=== PATIENT | female | born 1945 | race Caucasian/White ===

== ENCOUNTER 2020-03-26 14:32 | Outpatient (CLI) | payer MEDICARE, SELFPAY ==
[2020-03-26 14:46] LABS: Basophils Absolute Auto 0.03 K/mm3 (0.00-0.10); Basophils Percent Auto 0.5 % (0.0-1.0); Eosinophils Percent Auto 3.5 % (1.0-6.0); Hematocrit 34.5 % (35.0-42.0); Hemoglobin 11.4 g/dL (11.7-13.8); Immature Granulocyte Absolute 0.01 K/mm3 (0.00-0.00); Immature Granulocyte Percent A 0.2 % (0.0-0.0); Lymphocytes Absolute Auto 1.83 K/mm3 (1.10-4.50); Lymphocytes Percent Auto 32.4 % (18.0-42.0); Mean Corpuscular Hemoglobin 30.7 pg (27.0-31.0); Mean Platelet Volume 10.3 fl (9.2-11.8); Monocytes Absolute Auto 0.55 K/mm3 (0.10-0.90); Monocytes Percent Auto 9.8 % (2.0-11.0); Neutrophils Percent Auto 53.6 % (50.0-70.0); Platelet Count Result 218 K/mm3 (150-420); Red Blood Count 3.71 M/mm3 (4.20-5.40); Red Cell Distribution Width 12.4 % (11.6-14.4); White Blood Count 5.6 K/mm3 (4.8-10.8)
[2020-03-26 15:42] LABS: Alanine Aminotransferase 17 U/L (14-59); Albumin Level 3.7 g/dL (3.4-5.0); Alkaline Phosphatase 66 U/L (46-116); Anion Gap 11.1 mmol/L (7-16); Aspartate Amino Transferase 18 U/L (15-37); Bilirubin,Total 0.3 mg/dL (0.00-1.00); Blood Urea Nitrogen 13 mg/dL (7-18); Calcium 8.6 mg/dL (8.5-10.1); Carbon Dioxide 33 mmol/L (21-32); Chloride 99 mmol/L (98-108); Estimated Glomerular Filt Rate 53; Glucose 82 mg/dL (70-99); Magnesium 1.9 mg/dL (1.8-2.4); Osmolality Calculated 287 mOsm/kg (285-295); Potassium 4.1 mmol/L (3.5-5.1); Sodium 139 mmol/L (136-145); Total Protein 6.4 g/dL (6.4-8.2)
== END 2020-03-26 14:33 | disposition home or self-care (01) ==
PROVIDERS: PCP Internal Medicine; Visit Provider Internal Medicine
DX: I10 Essential (primary) hypertension (principal)
CPT/HCPCS: 36415; 80053; 83735; 85025

== ENCOUNTER 2020-09-23 09:14 | Outpatient (CLI) | payer MEDICARE, SELFPAY ==
[2020-09-23 09:37] LABS: Basophils Absolute Auto 0.03 K/mm3 (0.00-0.10); Basophils Percent Auto 0.7 % (0.0-1.0); Eosinophils Absolute Auto 0.18 K/mm3 (0.02-0.50); Hematocrit 36.1 % (35.0-42.0); Hemoglobin 11.7 g/dL (11.7-13.8); Immature Granulocyte Absolute 0.01 K/mm3 (0.00-0.00); Immature Granulocyte Percent A 0.2 % (0.0-0.0); Lymphocytes Absolute Auto 1.44 K/mm3 (1.10-4.50); Lymphocytes Percent Auto 32.1 % (18.0-42.0); Mean Corpuscular HGB Conc 32.4 g/dL (32.0-36.0); Mean Corpuscular Hemoglobin 30.2 pg (27.0-31.0); Mean Platelet Volume 10.1 fl (9.2-11.8); Monocytes Absolute Auto 0.47 K/mm3 (0.10-0.90); Monocytes Percent Auto 10.5 % (2.0-11.0); Neutrophils Absolute Auto 2.4 K/mm3 (1.7-7.2); Neutrophils Percent Auto 52.5 % (50.0-70.0); Platelet Count Result 235 K/mm3 (150-420); Red Blood Count 3.88 M/mm3 (4.20-5.40); Red Cell Distribution Width 12.4 % (11.6-14.4); White Blood Count 4.5 K/mm3 (4.8-10.8)
[2020-09-23 10:50] LABS: Alanine Aminotransferase 20 U/L (14-59); Albumin Level 3.8 g/dL (3.4-5.0); Alkaline Phosphatase 62 U/L (46-116); Anion Gap 9 mmol/L (8-16); Aspartate Amino Transferase 15 U/L (15-37); Bilirubin,Total 0.6 mg/dL (0.00-1.00); Blood Urea Nitrogen 17 mg/dL (7-18); Calcium 8.9 mg/dL (8.5-10.1); Carbon Dioxide 30 mmol/L (21-32); Chloride 101 mmol/L (98-108); Estimated Glomerular Filt Rate 49; Glucose 94 mg/dL (70-99); Osmolality Calculated 291 mOsm/kg (285-295); Potassium 4.1 mmol/L (3.5-5.1); Sodium 140 mmol/L (136-145); Total Protein 6.4 g/dL (6.4-8.2)
== END 2020-09-23 09:15 | disposition home or self-care (01) ==
LOC: CHSLAB 09:16
PROVIDERS: PCP Internal Medicine; Visit Provider Internal Medicine
DX: I10 Essential (primary) hypertension (principal)
CPT/HCPCS: 36415; 80053; 85025

== ENCOUNTER 2021-02-25 09:46 | Outpatient (CLI) | payer MEDICARE, SELFPAY ==
[2021-02-25 09:55] LABS: Basophils Absolute Auto 0.04 K/mm3 (0.00-0.10); Basophils Percent Auto 0.9 % (0.0-1.0); Eosinophils Absolute Auto 0.14 K/mm3 (0.02-0.50); Hematocrit 35.8 % (35.0-42.0); Hemoglobin 11.9 g/dL (11.7-13.8); Immature Granulocyte Absolute 0.01 K/mm3 (0.00-0.00); Immature Granulocyte Percent A 0.2 % (0.0-0.0); Lymphocytes Absolute Auto 1.44 K/mm3 (1.10-4.50); Lymphocytes Percent Auto 30.8 % (18.0-42.0); Mean Corpuscular HGB Conc 33.2 g/dL (32.0-36.0); Mean Corpuscular Volume 93.2 fL (78.0-102.0); Mean Platelet Volume 10.2 fl (9.2-11.8); Monocytes Absolute Auto 0.46 K/mm3 (0.10-0.90); Monocytes Percent Auto 9.8 % (2.0-11.0); Neutrophils Absolute Auto 2.6 K/mm3 (1.7-7.2); Neutrophils Percent Auto 55.3 % (50.0-70.0); Platelet Count Result 240 K/mm3 (150-420); Red Blood Count 3.84 M/mm3 (4.20-5.40); Red Cell Distribution Width 12.6 % (11.6-14.4); White Blood Count 4.7 K/mm3 (4.8-10.8)
[2021-02-25 10:47] LABS: Alanine Aminotransferase 21 U/L (14-59); Albumin Level 3.8 g/dL (3.4-5.0); Alkaline Phosphatase 88 U/L (46-116); Anion Gap 7 mmol/L (8-16); Aspartate Amino Transferase 17 U/L (15-37); Bilirubin,Total 0.6 mg/dL (0.00-1.00); Blood Urea Nitrogen 19 mg/dL (7-18); Calcium 9.1 mg/dL (8.5-10.1); Carbon Dioxide 32 mmol/L (21-32); Chloride 100 mmol/L (98-108); Estimated Glomerular Filt Rate 48; Glucose 96 mg/dL (70-99); Osmolality Calculated 290 mOsm/kg (285-295); Potassium 4.1 mmol/L (3.5-5.1); Sodium 139 mmol/L (136-145); Total Protein 6.6 g/dL (6.4-8.2)
== END 2021-02-25 09:47 | disposition home or self-care (01) ==
LOC: CHSLAB 09:47
PROVIDERS: PCP Internal Medicine; Visit Provider Internal Medicine
DX: I10 Essential (primary) hypertension (principal)
CPT/HCPCS: 36415; 80053; 83735; 85025

== ENCOUNTER 2021-08-07 07:54 | Outpatient (CLI) | payer MEDICARE, SELFPAY ==
[2021-08-07 08:07] LABS: Basophils Absolute Auto 0.04 K/mm3 (0.00-0.10); Hematocrit 34.7 % (35.0-42.0); Hemoglobin 11.3 g/dL (11.7-13.8); Immature Granulocyte Absolute 0.02 K/mm3 (0.00-0.00); Immature Granulocyte Percent A 0.5 % (0.0-0.0); Lymphocytes Absolute Auto 1.01 K/mm3 (1.10-4.50); Lymphocytes Percent Auto 25.3 % (18.0-42.0); Mean Corpuscular HGB Conc 32.6 g/dL (32.0-36.0); Mean Corpuscular Hemoglobin 30.7 pg (27.0-31.0); Mean Corpuscular Volume 94.3 fL (78.0-102.0); Mean Platelet Volume 9.9 fl (9.2-11.8); Neutrophils Absolute Auto 2.3 K/mm3 (1.7-7.2); Neutrophils Percent Auto 58.2 % (50.0-70.0); Platelet Count Result 200 K/mm3 (150-420); Red Blood Count 3.68 M/mm3 (4.20-5.40); Red Cell Distribution Width 12.9 % (11.6-14.4)
[2021-08-07 09:20] LABS: Alanine Aminotransferase 24 U/L (14-59); Albumin Level 3.6 g/dL (3.4-5.0); Alkaline Phosphatase 62 U/L (46-116); Anion Gap 6 mmol/L (8-16); Aspartate Amino Transferase 14 U/L (15-37); Bilirubin,Total 0.5 mg/dL (0.00-1.00); Blood Urea Nitrogen 14 mg/dL (7-18); Calcium 8.6 mg/dL (8.5-10.1); Carbon Dioxide 32 mmol/L (21-32); Chloride 104 mmol/L (98-108); Estimated Glomerular Filt Rate 54; Glucose 87 mg/dL (70-99); Osmolality Calculated 293 mOsm/kg (285-295); Potassium 4.2 mmol/L (3.5-5.1); Sodium 142 mmol/L (136-145)
== END 2021-08-07 07:55 | disposition home or self-care (01) ==
PROVIDERS: PCP Internal Medicine; Visit Provider Internal Medicine
DX: I10 Essential (primary) hypertension (principal)
CPT/HCPCS: 36415; 80053; 83735; 85025

== ENCOUNTER 2022-02-09 09:53 | Outpatient (CLI) | payer MEDICARE, SELFPAY ==
[2022-02-09 10:07] LABS: Basophils Absolute Auto 0.04 K/mm3 (0.00-0.10); Eosinophils Absolute Auto 0.27 K/mm3 (0.02-0.50); Eosinophils Percent Auto 6.7 % (1.0-6.0); Hematocrit 36.6 % (35.0-42.0); Immature Granulocyte Absolute 0.01 K/mm3 (0.00-0.00); Immature Granulocyte Percent A 0.2 % (0.0-0.0); Lymphocytes Absolute Auto 1.26 K/mm3 (1.10-4.50); Lymphocytes Percent Auto 31.4 % (18.0-42.0); Mean Corpuscular HGB Conc 32.8 g/dL (32.0-36.0); Mean Corpuscular Hemoglobin 31.2 pg (27.0-31.0); Mean Corpuscular Volume 95.1 fL (78.0-102.0); Mean Platelet Volume 10.2 fl (9.2-11.8); Monocytes Absolute Auto 0.38 K/mm3 (0.10-0.90); Monocytes Percent Auto 9.5 % (2.0-11.0); Neutrophils Absolute Auto 2.1 K/mm3 (1.7-7.2); Neutrophils Percent Auto 51.2 % (50.0-70.0); Platelet Count Result 216 K/mm3 (150-420); Red Blood Count 3.85 M/mm3 (4.20-5.40); Red Cell Distribution Width 12.5 % (11.6-14.4)
[2022-02-09 10:43] LABS: Alanine Aminotransferase 41 U/L (14-59); Albumin Level 3.6 g/dL (3.4-5.0); Alkaline Phosphatase 75 U/L (46-116); Anion Gap 8 mmol/L (8-16); Aspartate Amino Transferase 18 U/L (15-37); Bilirubin,Total 0.5 mg/dL (0.00-1.00); Blood Urea Nitrogen 19 mg/dL (7-18); Calcium 8.6 mg/dL (8.5-10.1); Carbon Dioxide 30 mmol/L (21-32); Chloride 101 mmol/L (98-108); Estimated Glomerular Filt Rate 54; Glucose 95 mg/dL (70-99); Magnesium 1.7 mg/dL (1.8-2.4); Osmolality Calculated 290 mOsm/kg (285-295); Potassium 3.9 mmol/L (3.5-5.1); Sodium 139 mmol/L (136-145); Total Protein 6.2 g/dL (6.4-8.2)
== END 2022-02-09 09:54 | disposition home or self-care (01) ==
LOC: CHSLAB 09:55
PROVIDERS: PCP Internal Medicine; Visit Provider Internal Medicine
DX: D72.819 Decreased white blood cell count, unspecified (principal); I10 Essential (primary) hypertension
CPT/HCPCS: 36415; 80053; 83735; 85025

== ENCOUNTER 2022-02-23 09:27 | Outpatient (CLI) | payer MEDICARE, SELFPAY ==
--- NOTE | ~2022-02-23 | XR_ITS ---
EXAM: XR knee LT 3V HISTORY: medial left knee pain x6-9mo COMPARISON: 09/19/2015. FINDINGS: Osteopenia. Moderate medial and mild lateral joint space narrowing. Tricompartmental osteo phytosis, moderate in the patellofemoral compartment. No fracture or dislocation. Moderate volume art nt fluid is present. IMPRESSION: Tricompartmental left knee osteoarthritis, moderate in the medial and patellofemoral compartments. Mo derate volume left knee joint effusion. Reviewed, dictated and finalized at location K. IMPRESSION: Tricompartmental left knee osteoarthritis, moderate in the medial and patellofe moral compartments. Moderate volume left knee joint effusion.
== END 2022-02-23 09:28 | disposition home or self-care (01) ==
LOC: CHSIMG 09:29
PROVIDERS: PCP Internal Medicine; Visit Provider Internal Medicine
DX: M25.562 Pain in left knee (principal); M17.12 Unilateral primary osteoarthritis, left knee
CPT/HCPCS: 73562

== ENCOUNTER 2022-03-02 07:54 | Outpatient (RCR) | payer MEDICARE, SELFPAY ==
--- NOTE | 2022-03-02 08:58 | PTOPEVAL ---
Thank you for referring Terrence Alexander to [facility].? The patient is scheduled to be seen for therapy? ____x/week for ___ weeks. Please review, sign, date and return this plan of care YUDITH. I agree with and certify that the following plan of care is medically necessary. Referring Physician Date Admitting Provider: Attending Provider: Jarett Shea MD Referring Provider: *PT Outpatient Evaluation Start: 03/02/22 08:02 Freq: Status: Active Protocol: Document 03/02/22 08:05 [facility] (Rec: 03/02/22 08:58 [facility] [id number]) Therapy Assessment Status Assessment Status Assessment Status Evaluation Outpatient Past Medical History Cardiovascular History Hx Hypertension Yes Gastrointestinal History Hx Other Gastrointestinal Disorders Yes: constipation Evaluation Information Problem Diagnosis L knee pain, R knee pain Onset 02/24/22 Additional Evaluation Detail LEFS = 70% functionally declined Subjective Information patient reports she has been Query Text:As Reported By Patient/ having pain in the L knee for Family at least 6 months or more. she reports the L knee has been stiff, hurting, and giving out on her. she reports she has had xrays. she reports she was laying down while taking all xrays. she reports xrays show tricompartmental arthritis. she reports she does have pain in the R knee as well. she reports she has difficulty getting up and walking after sitting and resting for any amount of time. she reports she is not able to stay in bed more than 4 hours due to pain in the knees. Pain Assessment Timing of Pain Assessment Timing of Pain Assessment Assessment Pain Scale Pain Scale Used Numeric (1 - 10) Self Report Pain Assessment Right Knee(s) Reported Pain Level 0 Greatest Pain Intensity 3 Left Knee(s) Reported Pain Level 0 Greatest Pain Intensity 8 Pain Score Pain Score 0,0: Self Report Interventions Used Interventions Used By Clinicians Heat,Rest Lower Extremity Range of Motion General Lower Extremity Range of Motion Gross Lower Extremity Range of Motion -5 degrees arom R knee Comments extension 121 degrees arom R knee flex -5
--- NOTE | 2022-03-19 09:14 | PTOPEVAL ---
Thank you for referring Terrence Alexander to [facility].? The patient is scheduled to be seen for therapy? ____x/week for ___ weeks. Please review, sign, date and return this plan of care YUDITH. I agree with and certify that the following plan of care is medically necessary. Referring Physician Date Admitting Provider: Attending Provider: Jarett Shea MD Referring Provider: *PT Outpatient Evaluation Start: 03/02/22 08:02 Freq: Status: Active Protocol: Document 03/19/22 08:00 [facility] (Rec: 03/19/22 09:13 [facility] [id number]) Therapy Assessment Status Assessment Status Assessment Status Progress Outpatient Past Medical History Cardiovascular History Hx Hypertension Yes Gastrointestinal History Hx Other Gastrointestinal Disorders Yes: constipation Evaluation Information Problem Diagnosis L knee pain, R knee pain Onset 02/24/22 Pain Assessment Timing of Pain Assessment Timing of Pain Assessment Assessment Pain Scale Pain Scale Used Numeric (1 - 10) Self Report Pain Assessment Right Knee(s) Reported Pain Level 1 Greatest Pain Intensity 4 Left Knee(s) Reported Pain Level 6 Greatest Pain Intensity 8 Pain Score Pain Score 1,6: Self Report Interventions Used Interventions Used By Clinicians Activity or ADL's,Education, Electrical Stimulation, Exercise,Heat,Rest Lower Extremity Muscle Strength Testing Knee Strength Right Knee Flexion Strength 5 Normal Knee Extension Strength 4 Good Knee Strength Comments pain with R knee extension mm testing Left Knee Flexion Strength 5 Normal Knee Extension Strength 4+ Good + Gait Assessment Gait Pattern Assessment Other Gait Observations patient ambulates with bilateral trunk sway still this date, but displays improved bilateral knee flexion during gait cycle. 6 Minute Walk Total Distance (feet) 1,050 6 Minute Walk Gait Speed Score (feet/ 2.91 second) General Exercise General Exercises Exercise Description Ther ex Query Text:Record Sets, Reps, -heel and toe raises x30 each Resistance, and Position -hip abd x 30 bilat -hip ext x 30 bilat -mini squats x 20 paige -slant board stretch x3 minutes -progress measures Ther act -step ups 8 x 20 paige
--- NOTE | 2022-03-26 08:37 | PTOPEVAL ---
Thank you for referring Terrence Alexander to [facility].? The patient is scheduled to be seen for therapy? ____x/week for ___ weeks. Please review, sign, date and return this plan of care YUDITH. I agree with and certify that the following plan of care is medically necessary. Referring Physician Date Admitting Provider: Attending Provider: Jarett Shea MD Referring Provider: *PT Outpatient Evaluation Start: 03/02/22 08:02 Freq: Status: Active Protocol: Document 03/26/22 07:28 [facility] (Rec: 03/26/22 08:36 [facility] [id number]) Therapy Assessment Status Assessment Status Assessment Status Evaluation Outpatient Past Medical History Cardiovascular History Hx Hypertension Yes Gastrointestinal History Hx Other Gastrointestinal Disorders Yes: constipation Evaluation Information Problem Diagnosis L knee pain, R knee pain Onset 02/24/22 Subjective Information patient reports she continues Query Text:As Reported By Patient/ to have pain in the L knee. Family she reports she has had an xray but does not remember the arthritis. she reports she is leaving for a trip in a little over a week and will be doing a lot of standing and walking. Pain Assessment Timing of Pain Assessment Timing of Pain Assessment Assessment Pain Scale Pain Scale Used Numeric (1 - 10) Self Report Pain Assessment Right Knee(s) Reported Pain Level 0 Left Knee(s) Reported Pain Level 3 Pain Score Pain Score 0,3: Self Report Interventions Used Interventions Used By Clinicians Activity or ADL's,Education, Electrical Stimulation, Exercise,Heat,Rest Lower Extremity Range of Motion General Lower Extremity Range of Motion Gross Lower Extremity Range of Motion -5 degrees arom L knee Comments extension 110 degrees arom L knee flexion Lower Extremity Muscle Strength Testing Knee Strength Right Knee Flexion Strength 5 Normal Knee Extension Strength 4+ Good + Left Knee Flexion Strength 4+ Good + Knee Extension Strength 4+ Good + Knee Strength Comments cramping in the L thigh with mmt and pain with holding against mmt pressure when testing extension Muscle Length Testing Muscle Length Testing Left Hamstring Length 20 Query Text:(90 - 90 Position) Right Hamstring Length 15 Query Text:(90 - 90 Position)
== END 2022-03-26 10:04 | disposition home or self-care (01) ==
LOC: CHSPT 07:54
PROVIDERS: PCP Internal Medicine; Visit Provider Internal Medicine
DX: M25.562 Pain in left knee (principal)
CPT/HCPCS: 97014; 97110; 97161; 97530; G0283

== ENCOUNTER 2022-08-04 12:34 | Outpatient (CLI) | payer MEDICARE, SELFPAY ==
[2022-08-04 12:50] LABS: Basophils Absolute Auto 0.04 K/mm3 (0.00-0.10); Basophils Percent Auto 0.9 % (0.0-1.0); Eosinophils Absolute Auto 0.19 K/mm3 (0.02-0.50); Eosinophils Percent Auto 4.2 % (1.0-6.0); Hematocrit 34.3 % (35.0-42.0); Hemoglobin 11.4 g/dL (11.7-13.8); Immature Granulocyte Absolute 0.01 K/mm3 (0.00-0.00); Immature Granulocyte Percent A 0.2 % (0.0-0.0); Lymphocytes Absolute Auto 1.31 K/mm3 (1.10-4.50); Lymphocytes Percent Auto 28.9 % (18.0-42.0); Mean Corpuscular HGB Conc 33.2 g/dL (32.0-36.0); Mean Corpuscular Hemoglobin 31.3 pg (27.0-31.0); Mean Corpuscular Volume 94.2 fL (78.0-102.0); Mean Platelet Volume 10.2 fl (9.2-11.8); Neutrophils Absolute Auto 2.5 K/mm3 (1.7-7.2); Neutrophils Percent Auto 54.8 % (50.0-70.0); Platelet Count Result 214 K/mm3 (150-420); Red Blood Count 3.64 M/mm3 (4.20-5.40); Red Cell Distribution Width 12.6 % (11.6-14.4); White Blood Count 4.5 K/mm3 (4.8-10.8)
[2022-08-04 13:04] LABS: Anion Gap 5 mmol/L (8-16); Aspartate Amino Transferase 17 U/L (15-37); Blood Urea Nitrogen 21 mg/dL (7-18); Calcium 8.9 mg/dL (8.5-10.1); Carbon Dioxide 31 mmol/L (21-32); Chloride 99 mmol/L (98-108); Estimated Glomerular Filt Rate 41; Glucose 101 mg/dL (70-99); Osmolality Calculated 283 mOsm/kg (285-295); Potassium 4.2 mmol/L (3.5-5.1); Sodium 135 mmol/L (136-145)
== END 2022-08-04 12:35 | disposition home or self-care (01) ==
PROVIDERS: PCP Internal Medicine; Visit Provider Physician Assistant Surgical
DX: M25.562 Pain in left knee (principal); Z79.1 Long term (current) use of non-steroidal anti-inflammatories (NSAID); M17.12 Unilateral primary osteoarthritis, left knee
CPT/HCPCS: 36415; 80048; 84450; 85025

== ENCOUNTER 2022-08-18 07:42 | Outpatient (CLI) | payer MEDICARE, SELFPAY ==
[2022-08-18 08:04] LABS: Basophils Absolute Auto 0.06 K/mm3 (0.00-0.10); Basophils Percent Auto 1.3 % (0.0-1.0); Eosinophils Absolute Auto 0.24 K/mm3 (0.02-0.50); Eosinophils Percent Auto 5.2 % (1.0-6.0); Hemoglobin 11.8 g/dL (11.7-13.8); Immature Granulocyte Absolute 0.01 K/mm3 (0.00-0.00); Immature Granulocyte Percent A 0.2 % (0.0-0.0); Lymphocytes Absolute Auto 1.53 K/mm3 (1.10-4.50); Mean Corpuscular HGB Conc 32.8 g/dL (32.0-36.0); Mean Corpuscular Hemoglobin 30.7 pg (27.0-31.0); Mean Corpuscular Volume 93.8 fL (78.0-102.0); Mean Platelet Volume 9.8 fl (9.2-11.8); Monocytes Absolute Auto 0.49 K/mm3 (0.10-0.90); Monocytes Percent Auto 10.6 % (2.0-11.0); Neutrophils Absolute Auto 2.3 K/mm3 (1.7-7.2); Neutrophils Percent Auto 49.7 % (50.0-70.0); Platelet Count Result 234 K/mm3 (150-420); Red Blood Count 3.84 M/mm3 (4.20-5.40); Red Cell Distribution Width 12.4 % (11.6-14.4); White Blood Count 4.6 K/mm3 (4.8-10.8)
[2022-08-18 08:06] LABS: Appearance Urine Clear (Clear); Bilirubin Urine Negative (Negative); Blood Urine Negative (Negative); Glucose Urine UA Negative (Negative); Ketones Urine Negative (Negative); Leukocyte Esterase Ur 1+ (Negative); Nitrate Urine Negative (Negative); Protein Urine Negative (Negative); Urobilinogen Urine 0.2 mg/dL (0.2-1.0)
[2022-08-18 08:11] LABS: Add Urine Microscopic? YES; Bacteria Urine Trace /hpf; Color Urine Light Yellow (Yellow); RBC Urine None seen /hpf (0-2); Squamous Epithelial Cell Urine Moderate /hpf (Few); WBC Urine 0-3 /hpf (0-3)
[2022-08-18 08:45] LABS: Alanine Aminotransferase 17 U/L (14-59); Albumin Level 3.7 g/dL (3.4-5.0); Alkaline Phosphatase 64 U/L (46-116); Anion Gap 5 mmol/L (8-16); Aspartate Amino Transferase 17 U/L (15-37); Bilirubin,Total 0.6 mg/dL (0.00-1.00); Blood Urea Nitrogen 16 mg/dL (7-18); Calcium 8.8 mg/dL (8.5-10.1); Carbon Dioxide 33 mmol/L (21-32); Chloride 101 mmol/L (98-108); Estimated Glomerular Filt Rate 55; Glucose 98 mg/dL (70-99); Magnesium 2.1 mg/dL (1.8-2.4); Osmolality Calculated 289 mOsm/kg (285-295); Potassium 4.1 mmol/L (3.5-5.1); Sodium 139 mmol/L (136-145); Thyroid Stimulating Hormone 1.63 uIU/mL (0.36-3.74); Total Protein 6.2 g/dL (6.4-8.2)
[2022-08-21 20:08] LABS: Albumin 3.8 g/dL (3.8-4.8); Alpha 1 Globulin 0.4 g/dL (0.2-0.3); Alpha 2 Globulin 0.7 g/dL (0.5-0.9); Beta 1 Globulin 0.5 g/dL (0.4-0.6); Gamma Globulin 0.8 g/dL (0.8-1.7); Protein, Total 6.3 g/dL (6.1-8.1)
[2022-08-24 04:23] LABS: Immunoglobulin A 123 mg/dL (70-320); Immunoglobulin G 741 mg/dL (600-1540); Immunoglobulin M 57 mg/dL (50-300)
== END 2022-08-18 07:43 | disposition home or self-care (01) ==
PROVIDERS: PCP Internal Medicine; Visit Provider Internal Medicine
DX: D72.819 Decreased white blood cell count, unspecified (principal); E77.8 Other disorders of glycoprotein metabolism; I10 Essential (primary) hypertension
CPT/HCPCS: 36415; 80053; 81001; 82784; 83735; 84155; 84165; 84443; 85025

== ENCOUNTER 2022-09-29 09:11 | Outpatient (CLI) | payer MEDICARE, SELFPAY | END 2022-09-29 09:12 | disposition home or self-care (01) | PROVIDERS: PCP Internal Medicine; Visit Provider Specialist | DX: L82.1 Other seborrheic keratosis (principal) | CPT/HCPCS: 88305 ==

== ENCOUNTER 2023-11-01 08:25 | Outpatient (RCR) | payer MEDICARE, SELFPAY ==
--- NOTE | 2023-11-01 13:09 | OPREHPOC ---
Outpatient Therapy Plan of Care This is a Multidisciplinary Plan of Care that may contain components documented by all disciplines (PT, OT, and ST.) PT Problem 1 PT Problem #1 Knowledge Deficit PT Goal 1 Goal Patient to demonstrate independence with HEP Target Visit 5 PT Problem 2 PT Problem #2 Pain PT Goal 1 Goal 1. Patient to report highest pain at 2/10 2. Patient to report ability to sit to play cards with no increase in pain Target Visit 10 PT Problem 3 PT Problem #3 Impaired Flexibility PT Goal 1 Goal Patient to demonstrate 20 deg of B HS length to improve ability to stand for house hold tasks Target Visit 10 PT Problem 4 PT Problem #4 Impaired Strength PT Goal 1 Goal Patient to demonstrate 5/5 B LE strength to improve ability to bring groceries up her steps to get inside Target Visit 10 PT Problem 5 PT Problem #5 Impaired Functional Mobil PT Goal 1 Goal Patient to improve LEFS by 20% Target Visit 10
--- NOTE | 2023-11-01 13:09 | PTOPEVAL1 ---
Assessment and note entered by Cherie Phillips DPT Evaluation Information Assessment Status Evaluation Diagnosis L knee pain Onset 10/26/23 Subjective Information Patient reports she has had chronic knee pain with L worse than R. She report she has been getting injections in the L knee since Nov 2022. She reports she does get relief from the injections. She is getting another injection on 11/22/23. She reports she is not ready for a knee replacement at this time. She has most pain with standing for long periods of time, sitting for long periods of time and carrying her groceries up the 2 steps into her house. She reports she has done PT prior. Reported Pain Level Pain Score 1,0: Self Report Assessment PT Clinical Summary Patient is a 78 year old female who presents to PT with L knee pain. Patient demonstrates decreased L LE strength, decreased L LE flexibility and impaired gait. She is limited in her ability to navigate stairs in her home, standing to complete house hold tasks and sitting to play cards. She would benefit from skilled PT to address impairments and return to PLOF. Plan of Care Interventions Electrical Stimulation,Gait Training,Hot Pack/Cold Pack,Manual Therapy,Neuro Re-education,Patient/ Caregiver Educati,Therapeutic Activities, Therapeutic Exercise PT Services Indicated Yes Treatment Frequency and 2x weekly for 10 visits Duration These treatments will address the objective and functional deficits as defined above. The patient will be advanced safely and appropriately in order for the patient to progress towards his/her prior level of function. Additional exercises will be introduced and as well as a comprehensive home exercise program upon discharge, if needed, ?to ensure carryover of functional gains achieved in the clinic. This treatment plan has been reviewed and agreement upon by the patient.
--- NOTE | 2023-11-30 07:52 | OPREHPOC ---
Outpatient Therapy Plan of Care This is a Multidisciplinary Plan of Care that may contain components documented by all disciplines (PT, OT, and ST.) PT Problem 1 PT Problem #1 Knowledge Deficit PT Goal 1 Goal Patient to demonstrate independence with HEP Target Visit 5 Progress Met PT Problem 2 PT Problem #2 Pain PT Goal 1 Goal 1. Patient to report highest pain at 2/10 2. Patient to report ability to sit to play cards with no increase in pain Target Visit 10 Progress Partially Met PT Problem 3 PT Problem #3 Impaired Flexibility PT Goal 1 Goal Patient to demonstrate 20 deg of B HS length to improve ability to stand for house hold tasks Target Visit 10 Progress Not Met PT Problem 4 PT Problem #4 Impaired Strength PT Goal 1 Goal Patient to demonstrate 5/5 B LE strength to improve ability to bring groceries up her steps to get inside Target Visit 10 Progress Not Met PT Problem 5 PT Problem #5 Impaired Functional Mobil PT Goal 1 Goal Patient to improve LEFS by 20% Target Visit 10 Progress Met
--- NOTE | 2023-11-30 07:52 | PTOPDC ---
Assessment and note entered by Cherie Phillips DPT Evaluation Information Assessment Status Discharge Diagnosis L knee pain Onset 10/26/23 Subjective Information Patient reports her knees have improved since starting PT. She reports that walking and getting up out of the chair have impoved. She reports she is able to sit to play cards for about 2 hors before pain and stiffness. She got an injection on 11/22/23 and will go back again in 3 months for a follow up. She reports she is compliant with HEP. Reported Pain Level Pain Score 4,5: Self Report Pain Score 1,2: Self Report Assessment PT Clinical Summary Ms. Laguna has attended 10 visits of skilled PT with great progress towards goals. She met goals for HEP and LEFS scoring improved by 20%. She did not meet goals for pain, strength or sitting tolerance but did show great progress towards goals. She has improved ability to ambulate prolonged distances and getting up out of a chair. She is independent with HEP and is appropriate for DC at this time. Plan of Care PT Services Indicated No
== END 2023-11-30 08:48 | disposition home or self-care (01) ==
LOC: CHSPT 08:25
PROVIDERS: Visit Provider Orthopaedic Surgery
DX: M17.12 Unilateral primary osteoarthritis, left knee (principal)
CPT/HCPCS: 97110; 97112; 97161; 97530

== ENCOUNTER 2023-11-20 08:08 | Outpatient (CLI) | payer MEDICARE, SELFPAY | END 2023-11-20 08:09 | disposition home or self-care (01) | LOC: CHSIMG 08:11 | PROVIDERS: PCP Internal Medicine; Visit Provider Internal Medicine | DX: R22.32 Localized swelling, mass and lump, left upper limb (principal) | CPT/HCPCS: 99199 ==

== ENCOUNTER 2023-12-27 08:37 | Outpatient (CLI) | payer MEDICARE, SELFPAY ==
--- NOTE | ~2023-12-27 | US_ITS ---
EXAMINATION: US carotid duplex BI DATE: 12/27/2023 09:05 INDICATION: Stroke. Carotid stenosis. TECHNIQUE: Grayscale, color Doppler, and pulsed Doppler images of the cervical carotid arteries were obtained. The degree of vessel stenosis is placed in one of the following categories: normal, <50%, 5 0-69%, >=70% but less than near-occlusion, near-occlusion, or total occlusion. Note that percent sten osis relative to normal distal artery lumen diameter is indirectly measured from velocity measurement s as described by Gary, et al. Radiology 2003; 229:340-346. COMPARISON: None. FINDINGS: RIGHT: The right common carotid artery (CCA) peak systolic velocity (PSV) is 94 cm/s. The right internal car otid artery (ICA) PSV is 106 cm/s. The right ICA end-diastolic velocity (EDV) is 27 cm/s. The right I CA/CCA PSV ratio is 1.1. Grayscale and color Doppler images yield an estimate of <50% diameter reduct ion from plaque in the ICA. The external carotid artery (ECA) PSV is 65 cm/s. There is antegrade flow in the right vertebral artery. LEFT: The left CCA PSV is 87 cm/s. The left ICA PSV is 87 cm/s. The left ICA EDV is 34 cm/s. The left ICA/C CA PSV ratio is 1.0. Grayscale and color Doppler images yield an estimate of <50% diameter reduction from plaque in the ICA. The ECA PSV is 81 cm/s. There is antegrade flow in the left vertebral artery. IMPRESSION: 1. <50% stenosis in the right internal carotid artery. 2. <50% stenosis in the left internal carotid artery. Reviewed, dictated and finalized at location A. [facility]
== END 2023-12-27 08:38 | disposition home or self-care (01) ==
LOC: CHSIMG 08:39
PROVIDERS: PCP Internal Medicine; Visit Provider Internal Medicine
DX: I65.23 Occlusion and stenosis of bilateral carotid arteries (principal); I25.10 Atherosclerotic heart disease of native coronary artery without angina pectoris
CPT/HCPCS: 93880

== ENCOUNTER 2024-02-14 10:35 | Outpatient (CLI) | payer MEDICARE, SELFPAY ==
--- NOTE | ~2024-02-14 | XR_ITS ---
Supine and upright views of the abdomen Clinical history: Abdominal pain, constipation Findings: Bowel gas pattern is nonspecific. No evidence for obstruction or free air. No abnormal mass lesion or calcification is seen. Osseous structures are intact. Impression: No significant abnormality is seen. Reviewed, dictated and finalized at [facility]. Impression: No significant abnormality is seen.
== END 2024-02-14 10:36 | disposition home or self-care (01) ==
PROVIDERS: PCP Internal Medicine; Visit Provider Nurse Practitioner
DX: K59.01 Slow transit constipation (principal); R10.30 Lower abdominal pain, unspecified
CPT/HCPCS: 74018

== ENCOUNTER 2024-02-24 06:56 | Outpatient (CLI) | payer MEDICARE, SELFPAY ==
--- NOTE | ~2024-02-24 | CT_ITS ---
CT of the Abdomen and Pelvis: Indication: Abdominal pain Technique: 2.5 mm axial scans were obtained through the abdomen and pelvis following intravenous adm inistration of 100 cc of Omnipaque 350. Dose reduction technique was used on this scan by utilizing a utomated exposure control and iterative reconstruction technique. The dose-length product (DLP) was 5 74.63 mGy-cm. Findings: Scans through the lung bases are unremarkable. The liver, spleen, pancreas, gallbladder, adrenals and kidneys are within normal limits. No evidence of aortic aneurysm. No lymphadenopathy. No bowel obstruction or bowel wall thickening. There is no evidence to suggest acute appendicitis. Images through the pelvis were performed. Urinary bladder unremarkable. No pelvic mass seen. No ascit es. Impression: No significant abnormalities seen. Reviewed, dictated and finalized at location . Impression: No significant abnormalities seen.
[2024-02-24 07:24] LABS: Estimated Glomerular Filt Rate 53
== END 2024-02-24 06:57 | disposition home or self-care (01) ==
PROVIDERS: PCP Internal Medicine; Visit Provider Nurse Practitioner
DX: R10.9 Unspecified abdominal pain (principal)
CPT/HCPCS: 74177; Q9967

== ENCOUNTER 2024-06-19 09:07 | Outpatient (CLI) | payer MEDICARE, SELFPAY ==
[2024-06-19 11:17] LABS: Basophils Percent Auto 0.8 % (0.2-1.2); Eosinophils Absolute Auto 0.2 K/mm3 (0-0.3); Eosinophils Percent Auto 3.3 % (0-4.4); Hematocrit 34.8 % (37.0-47.0); Hemoglobin 11.5 g/dL (12.0-15.0); Immature Granulocyte Absolute 0.01 K/mm3 (0.00-0.031); Immature Granulocyte Percent A 0.2 % (0-0.5); Lymphocytes Absolute Auto 1.53 K/mm3 (0.9-3.2); Lymphocytes Percent Auto 31.7 % (18.3-44.2); Mean Corpuscular Hemoglobin 30.8 pg (26-34); Mean Corpuscular Volume 93.3 fl (80-100); Mean Platelet Volume 10.1 fl (7.4-10.4); Monocytes Absolute Auto 0.5 K/mm3 (0.1-0.6); Monocytes Percent Auto 9.7 % (2.6-8.5); Neutrophils Absolute Auto 2.6 K/mm3 (1.3-6.7); Neutrophils Percent Auto 54.3 % (45.5-73.1); Platelet Count Result 210 k/mm3 (150-375); Red Blood Count 3.73 M/mm3 (4.2-5.4); White Blood Count 4.8 K/mm3 (4.5-10.0)
[2024-06-19 11:26] LABS: Albumin Level 4.2 g/dL (3.5-5.1); Anion Gap 8 mmol/L (4-12); Blood Urea Nitrogen 18 mg/dL (7-17); Calcium 8.8 mg/dL (8.4-10.2); Carbon Dioxide 30 mmol/L (22-30); Chloride 95 mmol/L (98-107); Estimated Glomerular Filt Rate 60; Glucose 91 mg/dL (65-110); Potassium 3.6 mmol/L (3.4-5.0); Sodium 133 mmol/L (137-145)
[2024-06-19 11:38] LABS: Urine Cotinine NEGATIVE
[2024-06-19 12:52] LABS: Hemoglobin A1C 5.4 % (<5.7)
== END 2024-06-19 09:08 | disposition home or self-care (01) ==
LOC: ANHSURGERY 09:12
PROVIDERS: PCP Internal Medicine; Visit Provider Orthopaedic Surgery
DX: Z01.818 Encounter for other preprocedural examination (principal); M17.12 Unilateral primary osteoarthritis, left knee
CPT/HCPCS: 80048; 80307; 82040; 83036; 85025; 87081

== ENCOUNTER 2024-06-28 06:42 | Outpatient (CLI) | payer MEDICARE, SELFPAY ==
--- NOTE | ~2024-06-28 | NM_ITS ---
EXAMINATION: NM zachary stress w perfusion DATE: 06/28/2024 10:13 CDT INDICATION: Dyspnea TECHNIQUE: Rest images were obtained following intravenous administration of 11.7 mCi Tc99m tetrofosm in (Myoview). The patient was infused intravenously with Lexiscan (regadenoson). Then, 34 mCi Tc99m t etrofosmin (Myoview) was administered intravenously, and stress images were obtained. Data was recons tructed into short axis and horizontal and vertical long axis SPECT images. Gated SPECT images were a lso obtained. COMPARISON: None. FINDINGS: There is no definite reversible or fixed perfusion abnormality to suggest ischemia or infar ction. There is no segmental wall motion abnormality. Left ventricular ejection fraction measures 8 8%. IMPRESSION: 1. No definite ischemia or infarct. 2. Normal left ventricular ejection fraction measuring 88%. Reviewed, dictated and finalized at location B.
--- NOTE | 2024-06-28 07:31 | EST_ITS ---
Patient Info Name: Terrence Alexander Age: 79 years : 1945 Gender: Female Ht: 64 in Wt: 185 lbs BSA: 1.98 m2 HR: 68 bpm BP: 136 / 74 mmHg Heart Rhythm: Sinus Rhythm Exam Date: 06/28/2024 8:35 AM Exam Location: Echo Lab Patient Status: Outpatient Admit Date: 06/28/2024 Staff Ordering Physician: Zack Agarwal DO Attending Provider: Zack Agarwal DO Exercise Technologist: Arlin Zhang CT Exercise Physician: Zack Agarwal DO Exam Type: CA stress zachary w NM Study Info Indications R06.09 - Other forms of dyspnea A regadenoson stress test was performed. Summary 1. 1. Negative lexiscan stress test for ischemic ST changes by ECG criteria. 2. 2. Stable hemodynamics throughout the test. 3. 3. Nuclear scan to follow and will be reported separately. Please correlate with it. 4. 4. Patient informed of the above results. Protocol: Lexiscan Stress ECG Details Stage: REST Duration (min): 1 min : 36 sec HR (bpm): 67 SBP (mmHg): 136 DBP (mmHg): 74 Stage: REST Duration (min): 4 min : 56 sec HR (bpm): 72 SBP (mmHg): 136 DBP (mmHg): 74 Stage: STAGE 1 Duration (min): 0 min : 59 sec HR (bpm): 79 SBP (mmHg): 150 DBP (mmHg): 64 Stage: RECOVERY Duration (min): 1 min : 0 sec HR (bpm): 86 SBP (mmHg): 150 DBP (mmHg): 64 Stage: RECOVERY Duration (min): 2 min : 0 sec HR (bpm): 81 SBP (mmHg): 150 DBP (mmHg): 64 Stage: RECOVERY Duration (min): 3 min : 0 sec HR (bpm): 81 SBP (mmHg): 127 DBP (mmHg): 62 Stage: RECOVERY Duration (min): 3 min : 13 sec HR (bpm): 81 SBP (mmHg): 127 DBP (mmHg): 62 Rest HR: 72 bpm Peak HR: 88 bpm Rest Sys BP: 136 mmHg Peak Sys BP: 150 mmHg Max Pred HR: 139 bpm % Max Pred HR: 63 % Target HR: 118 bpm Max RPP: 13,200 bpm*mmHg Termination Reason: Completed protocol Cardiac Symptoms: Shortness of breath Total Time: 1 min : 0 sec Rest Leyva BP: 74 mmHg Peak Leyva BP: 64 mmHg Total Dose: 0.4 mg Resting ECG Sinus rhythm. Stress ECG No ST changes. Arrhythmias None. Report Signatures
== END 2024-06-28 06:43 | disposition home or self-care (01) ==
LOC: ANHCARD 06:43
PROVIDERS: PCP Internal Medicine; Visit Provider Internal Medicine Cardiovascular Disease
DX: R06.09 Other forms of dyspnea (principal)
CPT/HCPCS: 78452; 93017; A9502; J2785

== ENCOUNTER 2024-07-06 01:21 | Day surgery (SDC) | payer MEDICARE, SELFPAY ==
[2024-06-19 09:55] VITALS: BMI 31.2
--- NOTE | 2024-06-19 10:34 | PC.NURSE ---
Report to the Outpatient Waiting Room, entrance under the green pavilion located off [facility], at time __9:30AM on date ___07/06/24____. Planned Procedure Time: __11:30AM . Time changes happen often and if your time is changed the preop area will call you the afternoon before. - You and your visitor will be asked to self-screen and do not enter if you have any COVID symptoms. - A mask is optional within the hospital at this time. Patients may have clear liquids (water, carbonated beverages, clear teas, apple juice) until 3 hours prior to surgery( 8:30 AM) with a maximum of 20 ounces. - No food from midnight until time of surgery - Infants may have breast milk until 4 hours before surgery, infant formula 6 hours prior to surgery. - Children will be allowed to drink immediately following surgery. If applicable, please bring a bottle or sippy cup to assist with drinking. Juice, water, soda, and popsicles are readily available. For infants on formula, please bring formula the day of surgery. Pacifiers are allowed. Take the following medications with a SIP of water the morning of surgery: ___NONE DO NOT STOP ANY OF YOUR OTHER PRESCRIPTION MEDICATIONS PRIOR TO SURGERY ?EXCEPT THE FOLLOWING Medications to discontinue per physician __NONE. MAY TAKE TYLENOL IF NEEDED FOR PAIN Please no make-up, nail hebrew, hairspray, perfume, deodorant, or body powder the day of surgery. No jewelry (including any body piercings) or valuables the day of surgery, leave them at home. Please take a shower or bath the night before, or the morning of, surgery with an antibacterial soap. Wear comfortable, loose fitting clothing. Children are encouraged to wear pajamas. - Jewelry must be removed prior to entering the operating room. Rings and piercings that are not removed may be cut off. - The hospital will not accept responsibility for valuables. - Please leave all valuables, including medications, at home the day of surgery. If you are going home after surgery, a licensed national van truck driver must drive you home. - NO public transportation without another adult if you receive anesthesia. - We recommend that an adult stay with you for 24 hours following discharge. - We also recommend that you do not drive, make important decision, drink alcoholic beverages, or take any drugs that were not prescribed by your health care provider for at least 24 hours after your discharge time. Follow any additional instructions given to you from your surgeon. If you or anyone in your household have experienced Covid symptoms in the past week, please notify your surgeon or the nurse liaison at the phone number below for possible testing. VERBAL AND WRITTEN instructions given to _PATIENT and asked if any additional questions and then verbalized understanding. Patient advised to call surgeon office or pre surgery nurse liaison [phone] if any additional questions.
[2024-06-19 10:55] VITALS: BP 140/74; PULSE 71; RESP 18; TEMP 36.7; O2SAT 98
--- NOTE | 2024-07-05 07:45 | PM.IMHP ---
H&P: HPI History of Present Illness Date/Time: 07/05/24 07:45 Chief Complaint: Left knee DJD Narrative: 79-year-old female patient of Dr. Shea who presents for a left total knee arthroplasty. Patient has been having symptoms in her knee for years. She has been getting cortisone injections on a regular basis. Last shot was over 4 months ago. Patient is still having significant symptoms on a daily basis. She has moderately severe medial compartment osteoarthritis. She feels she would rather proceed with total knee arthroplasty rather continue nonsurgical treatment. Review of Systems Review of Systems: All systems reviewed & are unremarkable except as noted in HPI and below PMFSH Past Medical History Medical History Diverticulosis HTN (hypertension) Hx of adenomatous colonic polyps Slow transit constipation Surgical History Surgical History History of blepharoplasty Family History Family History (Updated 06/19/24 @ 15:45 by RACHELL Varner) Mother Cerebrovascular accident Sibling Cerebrovascular accident Father Heart disease Heart attack Acute myocardial infarction Social History Social History (Updated 06/19/24 @ 15:46 by RACHELL Varner) Smoking status: Never smoker Second hand tobacco smoke exposure: Yes Additional smoking assessment comments: DENIES ANY FORM OF TOBACCO USE Alcohol intake: never Substance use: never Substance use type: does not use Do You Feel Safe in your Home?: Yes Lack of Transportation: No Lack of Food: Never True Current Housing: I Have Housing Concerned About Future Housing: No Difficulty Paying Gas/Electric Bills: No Difficulty Paying for Meds: No Currently Unemployed: No Education: High School Diploma/GED Difficulty w/ Childcare or Family Care: No Living arrangements: alone 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 Gender identity (if verbalized by the patient): Female Spiritual care concerns: No Meds Home Medications and Allergies Home Medications Medication Instructions Recorded Confirmed Type losartan 50 mg-hydrochlorothiazide 1 tablet PO DAILY 12/23/23 06/20/24 History 12.5 mg tablet prucalopride 2 mg tablet 2 mg PO DAILY 02/16/24 06/20/24 History (Motegrity) polyethylene glycol 3350 17 8.5 g PO DAILY 03/28/24 06/20/24 History gram/dose oral powder (Miralax) Allergies Allergy/AdvReac Type Severity Reaction Status Date / Time No Known Allergies Allergy Verified 06/19/24 15:43 Exam Narrative: 79-year-old female very alert pleasant she is 5 ft 5 and 183 lb her BMI is 30.4. Her left knee range of motion is from 5-125 degrees. There is a trace effusion. She has moderately severe tenderness to the medial joint line to palpation. Normal stability in the knee. Hip range of motion is full without discomfort, negative Stinchfield maneuver. Normal quad strength. Normal sensation. 2+ dorsalis pedis pulse. There is no edema in lower extremities. Intact sensation of both lower extremities. Resp: Auscultation: clear to auscultation bilaterally Cardio: Rate: regular rate Rhythm: regular rhythm Assessment and Plan Assessment and plan (1) Osteoarthritis of left knee: Qualifiers: Osteoarthritis type: primary Qualified Code(s): M17.12 - Unilateral primary osteoarthritis, left knee Code(s): M17.12 - Unilateral primary osteoarthritis, left knee Status: Acute Assessment and Plan: 79-year-old female who has moderately severe medial compartment osteoarthritis in the left knee with continued symptoms. She feels she would like proceed with total knee arthroplasty at this point rather than continue nonsurgical treatment. Surgical procedure as well as the risk and complications were discussed in detail valentin
[2024-07-06] VITALS (10 sets, daily range): BP systolic 110–135; BP diastolic 49–76; PULSE 72–86; RESP 10–18; TEMP 36.2–36.7; O2SAT 95–100
--- NOTE | ~2024-07-06 | XR_ITS ---
EXAMINATION: [id number] DATE: 07/06/2024 15:34 CDT INDICATION: Left knee arthroplasty TECHNIQUE: 2 views left knee FINDINGS: There is a left total knee arthroplasty in expected position. Subcutaneous gas with fluid and air in the joint are consistent with recent surgery. No evidence of periprosthetic fracture. IMPRESSION: 1. Recent left total knee arthroplasty. Reviewed, dictated and finalized at location B.
--- NOTE | 2024-07-06 07:15 | WPDHPUPDATE1 ---
History and Physical Update Update Date/Time: 07/06/24 07:15 History and Physical has been reviewed, including an updated exam of the patient. There are NO changes in the patient's condition. Risks, benefits, and alternatives have been discussed and questions answered. Patient agrees to proceed with procedure.
[2024-07-06] MEDS: ACETAMINOPHEN 500 MG TABLET 1000 MG PO (09:35)
[2024-07-06] MEDS: LACTATED RINGERS 1,000 ML 30 ML IV CONT ×3 (09:40→16:13)
[2024-07-06] MEDS: VANCOMYCIN 1,250 MG/NS 250 ML 1,250 MG/250 ML BAG 166.67 MG IVPB (09:41)
[2024-07-06] MEDS: ceFAZolin SODIUM 1 GM VIAL 3 GM (10:43)
--- NOTE | 2024-07-06 10:55 | WPDANESEPPF ---
Anes - Initial Pre Proc Eval Procedure: Operation Date: 07/06/24 11:30 Proposed Procedures p Left Total Knee Arthroplasty - Jamin Christiansen MD Date/Time: 07/06/24 10:55 Surgeon: Jamin Christiansen MD Pre Op Diagnosis: oa left knee Patient Data Age: 79 Gender: F Height: 1.65 m Weight: 80 kg Last Vital Signs Temp 97.5 F L 07/06/24 09:52 Pulse 72 07/06/24 09:52 Resp 16 07/06/24 09:52 BP 135/56 L 07/06/24 09:52 Pulse Ox 99 07/06/24 09:52 O2 Del Method Room Air 07/06/24 09:52 Allergies Allergy/AdvReac Type Severity Reaction Status Date / Time No Known Allergies Allergy Verified 07/06/24 09:20 Home Medications Medication Instructions Recorded Confirmed Type losartan 50 mg-hydrochlorothiazide 1 tablet PO DAILY 12/23/23 07/06/24 History 12.5 mg tablet prucalopride 2 mg tablet 2 mg PO DAILY 02/16/24 07/06/24 History (Motegrity) polyethylene glycol 3350 17 8.5 g PO DAILY 03/28/24 07/06/24 History gram/dose oral powder (Miralax) Laboratory Tests 07/06/24 09:31 Blood Type Pending Antibody Screen Pending Patient hx anesthesia problems: none Family hx anesthesia problems: none Results Review: All pre-operative results and documents have been reviewed as part of the pre-operative evaluation. [facility] Past Medical History Medical History Diverticulosis HTN (hypertension) Hx of adenomatous colonic polyps Slow transit constipation Surgical History Surgical History History of blepharoplasty Family History Family History (Updated 06/19/24 @ 15:45 by RACHELL Varner) Mother Cerebrovascular accident Sibling Cerebrovascular accident Father Heart disease Heart attack Acute myocardial infarction Social History Social History (Updated 06/19/24 @ 15:46 by RACHELL Varner) Smoking status: Never smoker Second hand tobacco smoke exposure: Yes Additional smoking assessment comments: DENIES ANY FORM OF TOBACCO USE Alcohol intake: never Substance use: never Substance use type: does not use Do You Feel Safe in your Home?: Yes Lack of Transportation: No Lack of Food: Never True Current Housing: I Have Housing Concerned About Future Housing: No Difficulty Paying Gas/Electric Bills: No Difficulty Paying for Meds: No Currently Unemployed: No Education: High School Diploma/GED Difficulty w/ Childcare or Family Care: No Living arrangements: alone 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 Informed Consent: The patient's anesthetic plan and its attendant risks and benefits were discussed with the patient/family/POA. Questions were solicited and answers provided to the satisfaction of the patient/family/POA.
[2024-07-06] MEDS: TRANEXAMIC ACID 1,000MG/ISO100 1,000 MG/100 ML BAG 200 MG IVPB (11:02)
[2024-07-06] MEDS: ceFAZolin 2 GM/D5W 50 ML 2 GM/50 ML BAG IVPB ×2 (12:04→20:40)
[2024-07-06] MEDS: SODIUM CHLORIDE 0.9% IV 37.7 ML, MORPHINE SULFATE INJ (*CRX) 2 MG, ROPivacaine HCL 1% 2... INFILTRATE (12:29)
[2024-07-06] MEDS: ceFAZolin SODIUM 1 GM VIAL 2 GM IV PUSH (14:44)
[2024-07-06] MEDS: TRANEXAMIC ACID 1,000 MG/10 ML AMPUL 1000 MG IV PUSH (14:45)
--- NOTE | 2024-07-06 15:32 | W.PM.PROC2 ---
Procedure Note - Detailed Date of Procedure 07/06/24 Pre-op Diagnosis oa left knee Post-op Diagnosis Same Procedure Performed left total knee arthroplasty Surgeon Jamin Christiansen MD [employer] Lashawn Anesthesia General Description of Procedure patient was brought to the operating room and general anesthesia was administered. The left knee was prepped draped usual fashion. She received 2 g of Ancef weight based vancomycin 1 g of tranexamic acid preoperatively. The limb was exsanguinated and tourniquet elevated to 300 mmHg. A 7 in longitudinal midline incision was used and a vastus medialis splitting approach utilized splitting the vastus medialis at this level of the superior pole of the patella. Partial excision of infrapatellar fat pad was performed as well as quadriceps synovectomy. The patellar cartilage had central chondromalacia partial-thickness intact peripheral cartilage and I felt this was suitable for non resurfacing predict. Minimal lateral facetectomy was performed. A guide randall was inserted on femoral canal after aspiration of canal contents using the 5 degree valgus cutting bushing 9 mm of bone removed the distal femur. Next the tibial plateau was cut making a cut perpendicular to the axis of the tibia. A skim cut was used 1 mm the low point of medial tibial plateau. Meniscal remnants were excised and the PCL recessed. At 90? of flexion, flexion gap medially was 6 mm laterally 11 mm. Therefore an additional 2 mm of bone was removed from the tibial plateau. At this point medial flexion gap measured 8 mm and lateral flexion gap 13 mm. femoral sizing guide was set at 6? of external rotation which matched Whitesides line. Posterior referencing pinholes were placed. Size 62.5 cutting block was placed and AP and chamfer cuts were made in the 62.5 fit well. The tibia was sized to a 67. We trialed with the insert size 10. This was tight medially both in flexion and extension. Medial and posteromedial tibial osteophyte was carefully removed without releasing the posteromedial capsule. On read trialing with the size 11, medial side was still a little bit tight in flexion with the lateral side opening 2 mm. In extension we lacked about 5? of extension with no play medially about 2 mm laterally. I elected to introduce 1 degree of varus into the tibial cut so that the 11 insert would be appropriate at 90? this was carried out. We confirmed that the cut surface was flat and Re punched the tibial tray . Also there was posterior femoral osteophyte was removed this time. On retrialing now the 11 insert at 90? gave us a mm of medial opening at valgus stress 2 mm of lateral opening appropriate anterior posterior drawer. And extension the knee came out to just full extension with negative bounce but with the arthrotomy towel clipped there was a positive bounce. There was no play medially and valgus stress it was a bit tight medially. Therefore I elected to remove an additional mm of bone from the distal femur. . Chamfers were recut and on read trialing now the knee came out to full extension with a mm of medial play and 2-3 mm of lateral plate full extension with negative bounce with the arthrotomy towel clip. There is normal stability in all positions with the 11 insert this time. Lug holes were drilled in the femoral trial and patellar tracking was assessed and found to be excellent. We had put the tourniquet down at 90 minutes earlier and at this point we re-exsanguinated the limb and Re elevated the tourniquet to 300 mmHg. The bony surfaces were prepared with the step drill and thoroughly irrigated and dried. Using 2 batches of methylmethacrylate 1 the gentamicin powder, this cement was immediately applied the 67 vanguard tibial tray his 62.5 left CR femoral component cement applied the tibial plateau pressurized tibial component fully seated cement applied the femur the femoral component fully seated and a 12 mm [address]
--- NOTE | 2024-07-06 15:42 | PM.OP ---
Procedure Note - Brief Procedure Note - Brief Date of procedure: 07/06/24 oa left knee Procedure performed: Left total knee arthroplasty Surgeon: ERVIN Waldrop Findings: 79-year-old female who underwent left total knee arthroplasty the on 07/06. I was involved in the procedure including positioning the patient on the OR table and 1st assisting it through the time of surgery. Total time spent was 3 hours
[2024-07-06] MEDS: fentaNYL CITRATE INJ (*CRX) 100 MCG/2 ML VIAL 25 MCG IV PUSH ×5 (15:55→16:22)
[2024-07-06] MEDS: HYDROmorphone HCL INJ (*CRX) 1 MG/ML SYR 0.25 MG IV PUSH ×3 (16:33→16:51)
--- NOTE | 2024-07-06 17:13 | ADMGEN ---
This patient, Terrence Alexander, was admitted to Medical Room 340-01. Patient/family oriented to hospital policies and general routines including ID bracelet, bed and alarms, visiting hours, pain management, procedures, bathroom and other care routines, personal items, smoking policy, room service/diet, and visiting hours. Information on how to activate the Rapid Response Team has been discussed. Patient/Family are encouraged to report perceived risks to care and to ask questions if they do not understand what they are told or what they should do.
[2024-07-06] MEDS: ONDANSETRON INJ 4 MG/2 ML VIAL IV PUSH (17:16)
[2024-07-06] MEDS: SODIUM CHLORIDE 0.9% IV 1,000 ML 125 ML IV CONT (17:27)
[2024-07-06] MEDS: CALCIUM/VITAMIN D 500 MG/5 MCG (200 I.U.) TABLET PO (18:13)
[2024-07-06] MEDS: SENNA/DOCUSATE SODIUM TABLET 2 TAB PO (18:13)
[2024-07-06] MEDS: oxyCODONE HCL (*CRX) 2.5 MG TAB IR PO ×2 (18:20→22:13)
[2024-07-06] MEDS: ACETAMINOPHEN 325 MG TABLET 650 MG PO ×2 (18:20→22:13)
[2024-07-06] MEDS: FAMOTIDINE 20 MG TABLET PO (20:44)
[2024-07-06] MEDS: VANCOMYCIN 1,000 MG/NS 250 ML 1,000 MG/250 ML BAG 250 MG IVPB (22:14)
[2024-07-07 02:39] VITALS: BP 98/46; PULSE 70; RESP 20; TEMP 36.3; O2SAT 94
[2024-07-07] MEDS: oxyCODONE HCL (*CRX) 2.5 MG TAB IR PO ×3 (03:00→11:10)
[2024-07-07] MEDS: ACETAMINOPHEN 325 MG TABLET 650 MG PO ×3 (03:00→11:10)
[2024-07-07] MEDS: ceFAZolin 2 GM/D5W 50 ML 2 GM/50 ML BAG IVPB ×2 (04:39→11:10)
[2024-07-07] MEDS: SODIUM CHLORIDE 0.9% IV 1,000 ML 125 ML IV CONT (05:05)
[2024-07-07 06:23] LABS: Basophils Percent Auto 0.1 % (0.2-1.2); Hematocrit 29.2 % (37.0-47.0); Hemoglobin 9.4 g/dL (12.0-15.0); Immature Granulocyte Absolute 0.03 K/mm3 (0.00-0.031); Immature Granulocyte Percent A 0.3 % (0-0.5); Lymphocytes Absolute Auto 0.47 K/mm3 (0.9-3.2); Lymphocytes Percent Auto 4.9 % (18.3-44.2); Mean Corpuscular HGB Conc 32.2 g/dl (32-36); Mean Corpuscular Hemoglobin 30.5 pg (26-34); Mean Corpuscular Volume 94.8 fl (80-100); Mean Platelet Volume 11.1 fl (7.4-10.4); Monocytes Absolute Auto 0.7 K/mm3 (0.1-0.6); Monocytes Percent Auto 7.5 % (2.6-8.5); Neutrophils Absolute Auto 8.4 K/mm3 (1.3-6.7); Neutrophils Percent Auto 87.2 % (45.5-73.1); Platelet Count Result 191 k/mm3 (150-375); Red Blood Count 3.08 M/mm3 (4.2-5.4); White Blood Count 9.7 K/mm3 (4.5-10.0)
[2024-07-07 06:38] LABS: Anion Gap 7 mmol/L (4-12); Blood Urea Nitrogen 22 mg/dL (7-17); Calcium 7.8 mg/dL (8.4-10.2); Carbon Dioxide 26 mmol/L (22-30); Chloride 99 mmol/L (98-107); Estimated CRCL calculation 37 ml/min; Estimated Glomerular Filt Rate 48; Glucose 125 mg/dL (65-110); Potassium 3.9 mmol/L (3.4-5.0); Sodium 132 mmol/L (137-145)
[2024-07-07 06:46] LABS: Vitamin D 25 Hydroxy 14.6 ng/mL
--- NOTE | 2024-07-07 08:26 | PM.PNORT ---
Subjective Subjective Date/Time Seen: 07/07/24 08:26 Interval history: Postop day 1 patient is alert. She was having quite a bit of nausea yesterday after surgery and through the evening. She was not able to eat last night due to the nausea. It is doing much better this morning. She has ordered food and is wanting breakfast. Pain is well controlled at this point. Dressing is intact and dry. Neurovascularly she is intact. She has not been up walking on her own yet. She has been to the restroom but at this point nursing has been using the transporter. Therapy will work with her this morning. Patient is little concerned about going home at this point. She is 79 a and somewhat deconditioned. Hemoglobin is 9.4 today which will also cause some fatigue for her as well. I discussed with the patient that we will see how she does with Physical therapy this morning and again this afternoon and make a determination whether not she is comfortable about going home later today. If she is having difficulty and is not safe to go home we will keep her an additional night. Lab work was noted this morning. Vitamin D was low at 14.6. She has been started on supplementation for that. I will also start her on calcium and vitamin-D yesterday postop. Objective Data Vital Signs Vital Signs: Vital Signs - 24 hr 07/06/24 09:52 07/06/24 15:34 07/06/24 15:49 Temperature 97.5 F L 97.3 F L Pulse Rate 72 76 75 Respiratory Rate 16 10 L 15 Blood Pressure 135/56 L 121/52 L 119/56 L Pulse Oximetry 99 99 100 Oxygen Delivery Room Air Simple Face Mask Simple Face Mask Oxygen Flow Rate 10 10 07/06/24 16:04 07/06/24 16:29 07/06/24 16:44 Temperature Pulse Rate 75 74 77 Respiratory Rate 14 13 11 L Blood Pressure 111/76 110/51 L 117/54 L Pulse Oximetry 99 97 95 Oxygen Delivery Room Air Room Air Room Air Oxygen Flow Rate 07/06/24 16:52 07/06/24 17:50 07/06/24 17:30 Temperature 97.2 F L Pulse Rate 75 86 Respiratory Rate 12 16 Blood Pressure 111/51 L 134/56 L Pulse Oximetry 95 96 Oxygen Delivery Room Air Room Air Oxygen Flow Rate 07/06/24 18:58 07/06/24 20:00 07/06/24 21:45 Temperature 97.9 F 98.0 F Pulse Rate 79 78 Respiratory Rate 18 16 Blood Pressure 121/49 L 126/62 Pulse Oximetry 98 95 Oxygen Delivery Room Air Oxygen Flow Rate 07/07/24 02:39 Temperature 97.4 F L Pulse Rate 70 Respiratory Rate 20 Blood Pressure 98/46 L Pulse Oximetry 94 Oxygen Delivery Oxygen Flow Rate Intake/Output Intake/Output: Intake & Output 07/04/24 07/05/24 07/06/24 07/07/24 23:59 23:59 23:59 23:59 Intake Total 1200 50 Balance 1200 50 Meds/Results Medications: Active Medications Generic Name Dose Route Start Last Admin Trade Name Freq PRN Reason Stop Dose Admin Acetaminophen 650 mg 07/06/24 19:00 07/07/24 06:05 Acetaminophen 325 Mg Tablet PO 650 mg Q4H [facility] Administration Apixaban 2.5 mg 07/07/24 09:00 Apixaban 2.5 Mg Tablet PO 07/18/24 21:01 Q12HR [facility] Calcium Carbonate 500 mg 07/06/24 17:00 07/06/24 18:13 Calcium/Vitamin D 500 Mg/5 Mcg (200 I.U.) Tablet PO 500 mg BIDWM [facility] Administration Cefdinir 300 mg 07/07/24 09:00 Cefdinir 300 Mg Capsule PO Q12HR [facility] Celecoxib 100 mg 07/07/24 08:00 Celecoxib 100 Mg Capsule PO DAILY@0800 [facility] Diphenhydramine HCl 25 mg 07/06/24 16:54 Diphenhydramine Hcl Inj 50 Mg/Ml Vial IV PUSH Q6H PRN Itching Ergocalciferol 50,000 units 07/07/24 09:00 Ergocalciferol 50,000 Units Capsule PO WEEKLY [facility] Famotidine 20 mg 07/06/24 21:00 07/06/24 20:44 Famotidine 20 Mg Tablet PO 20 mg Q12HR [facility] Administration Hydrochlorothiazide 12.5 mg 07/07/24 09:00 Hydrochlorothiazide 12.5 Mg Capsule PO QAM [facility] Cefazolin Sodium 2 gm in 50 mls @ 100 mls/hr 07/06/24 20:00 07/07/24 05:09 Ancef 2 Gm/D5w 50 Ml IVPB 07/07/24 12:29 Infused Q8H [facility] Infusion Vancomycin HCl 1,
[2024-07-07] MEDS: CALCIUM/VITAMIN D 500 MG/5 MCG (200 I.U.) TABLET PO (09:14)
[2024-07-07] MEDS: APIXABAN 2.5 MG TABLET PO (09:14)
[2024-07-07] MEDS: hydroCHLOROthiazide 12.5 MG CAPSULE PO (09:14)
[2024-07-07] MEDS: ERGOCALCIFEROL 50,000 UNITS CAPSULE 50000 UNITS PO (09:14)
[2024-07-07] MEDS: FAMOTIDINE 20 MG TABLET PO (09:14)
[2024-07-07] MEDS: LOSARTAN POTASSIUM 50 MG TABLET PO (09:14)
[2024-07-07] MEDS: CEFDINIR 300 MG CAPSULE PO (09:14)
[2024-07-07] MEDS: SENNA/DOCUSATE SODIUM TABLET 2 TAB PO (09:14)
[2024-07-07] MEDS: polyethylene glycoL 3350 17 GM POWD.PACK PO (09:15)
[2024-07-07] MEDS: CELECOXIB 100 MG CAPSULE PO (09:15)
[2024-07-07] MEDS: VANCOMYCIN 1,000 MG/NS 250 ML 1,000 MG/250 ML BAG 250 MG IVPB (09:17)
--- NOTE | 2024-07-07 09:47 | PM.IMCN ---
Assessment and Plan Assessment and plan (1) History of total left knee replacement: Code(s): Z96.652 - Presence of left artificial knee joint Status: Acute Assessment and Plan: Patient follows ortho, Dr. Shea and has failed conservative management of her left knee. - s/p total left knee arthroplasty on 07/[address] Christiansen - Post op care per ortho - antibiotic: Cefdinir BID - PT/OT: full weight bearing status per ortho - DVT ppx: eliquis per ortho - analgesics per ortho - bowel regimen: continue home regimen (2) HTN (hypertension): Code(s): I10 - Essential (primary) hypertension Status: Acute Assessment and Plan: Chronic. Currently hypotensive after receiving her antihypertensive medications. MAP remains stable. Patient denies dizziness and is able to ambulate throughout her room using a wheeled walker. Hypotension likely secondary to pain medications and recent anethesia. - Continue losartan 50 mg daily and HCTZ 12.5 mg daily - Hold if systolic pressure is < 100 - Monitor (3) Slow transit constipation: Code(s): K59.01 - Slow transit constipation Status: Acute Assessment and Plan: Follows GI, last seen by Dr. Richardson on 03/28/24. Last colonoscopy in [address] Hodges with diverticulosis and a cecal polyp that was adenomatous. - Continue home bowel regimen: Montegrity 2 mg daily, miralax and colace daily - Monitor HPI Date of Consult Consult date: 07/07/24 Requesting Physician: Jamin Christiansen MD Primary Care Provider: Jarett Shea MD Consult Narrative Narrative: Terrence Alexander is a 79 year old female with past medical history of hypertension, diverticulosis and slow transit constipation who reports to the hospital for a scheduled left total knee arthroplasty. Patient had been following Dr. Shea for her moderately severe medial compartment osteoarthritis. She was unsuccessful with conservative management of cortisone injections, most recent 4 months ago. However patient continued to have episodes of severe sharp pain to the knee with difficulty ambulating up and down stairs. Per chart review patient was noting increased difficulty with longer ambulation and was no longer able to walk through box stores due to pain. Patient then decided to move forward with the elective total left knee arthroplasty. The hospitalist group was consulted for management of her chronic conditions. On assessment patient has no complaints. She states he pain is well controlled on the current regimen. She endorses slight nausea that she related to her taking PO pills. She denies vomiting or abdminal pain. She was able to walk throughout her room with PT/OT and was walking during my assessment. She denies lightheadedness and dizziness at that time. Review of Systems Review of Systems: All systems reviewed & are unremarkable except as noted in HPI and below PMFSH Past Medical History Medical History Diverticulosis HTN (hypertension) Hx of adenomatous colonic polyps Slow transit constipation Surgical History Surgical History History of blepharoplasty Family History Family History Mother Cerebrovascular accident Sibling Cerebrovascular accident Father Heart disease Heart attack Acute myocardial infarction Social History Social History (Updated 07/07/24 @ 13:40 by Shea Brady PA-C) Social History: Lives alone, no pets. Has 2 steps up to get into front door. Smoking status: Never smoker Second hand tobacco smoke exposure: Yes Additional smoking assessment comments: DENIES ANY FORM OF TOBACCO USE Alcohol intake: never Substance use: never Substance use type: does not use Do You Feel Safe in your Home?: Yes Lack of Transportation: No Lack of Food: Never True
[2024-07-07 10:35] VITALS: BP 98/60; PULSE 67; RESP 16; TEMP 36.6; O2SAT 98
--- NOTE | 2024-07-07 11:35 | PM.PNORT ---
Subjective Subjective Date/Time Seen: 07/07/24 11:35 Interval history: Patient is doing much better at this point. She worked with therapy this morning. She ate breakfast this morning without any nausea. She is eager to go home today. She will work this afternoon and then be discharged. Objective Data Vital Signs Vital Signs: Vital Signs - 24 hr 07/06/24 15:34 07/06/24 15:49 07/06/24 16:04 Temperature 97.3 F L Pulse Rate 76 75 75 Respiratory Rate 10 L 15 14 Blood Pressure 121/52 L 119/56 L 111/76 Pulse Oximetry 99 100 99 Oxygen Delivery Simple Face Mask Simple Face Mask Room Air Oxygen Flow Rate 10 10 07/06/24 16:29 07/06/24 16:44 07/06/24 16:52 Temperature Pulse Rate 74 77 75 Respiratory Rate 13 11 L 12 Blood Pressure 110/51 L 117/54 L 111/51 L Pulse Oximetry 97 95 95 Oxygen Delivery Room Air Room Air Room Air Oxygen Flow Rate 07/06/24 17:50 07/06/24 17:30 07/06/24 18:58 Temperature 97.2 F L 97.9 F Pulse Rate 86 79 Respiratory Rate 16 18 Blood Pressure 134/56 L 121/49 L Pulse Oximetry 96 98 Oxygen Delivery Room Air Oxygen Flow Rate 07/06/24 20:00 07/06/24 21:45 07/07/24 02:39 Temperature 98.0 F 97.4 F L Pulse Rate 78 70 Respiratory Rate 16 20 Blood Pressure 126/62 98/46 L Pulse Oximetry 95 94 Oxygen Delivery Room Air Oxygen Flow Rate 07/07/24 08:40 07/07/24 09:20 07/07/24 10:35 Temperature 97.9 F Pulse Rate 67 Respiratory Rate 16 Blood Pressure 98/60 L Pulse Oximetry 98 Oxygen Delivery Room Air Room Air Oxygen Flow Rate Intake/Output Intake/Output: Intake & Output 07/04/24 07/05/24 07/06/24 07/07/24 23:59 23:59 23:59 23:59 Intake Total 1200 290 Balance 1200 290 Meds/Results Medications: Active Medications Generic Name Dose Route Start Last Admin Trade Name Freq PRN Reason Stop Dose Admin Acetaminophen 650 mg 07/06/24 19:00 07/07/24 06:05 Acetaminophen 325 Mg Tablet PO 650 mg Q4H KIMO Administration Apixaban 2.5 mg 08/23/24 09:00 07/07/24 09:14 Apixaban 2.5 Mg Tablet PO 07/18/24 21:01 2.5 mg Q12HR KIMO Administration Calcium Carbonate 500 mg 07/06/24 17:00 07/07/24 09:14 Calcium/Vitamin D 500 Mg/5 Mcg (200 I.U.) Tablet PO 500 mg BIDWM KIMO Administration Cefdinir 300 mg 07/07/24 09:00 07/07/24 09:14 Cefdinir 300 Mg Capsule PO 300 mg Q12HR KIMO Administration Celecoxib 100 mg 07/07/24 08:00 07/07/24 09:15 Celecoxib 100 Mg Capsule PO 100 mg DAILY@0800 KIMO Administration Diphenhydramine HCl 25 mg 07/06/24 16:54 Diphenhydramine Hcl Inj 50 Mg/Ml Vial IV PUSH Q6H PRN Itching Ergocalciferol 50,000 units 07/07/24 09:00 07/07/24 09:14 Ergocalciferol 50,000 Units Capsule PO 50,000 units WEEKLY KIMO Administration Famotidine 20 mg 07/06/24 21:00 07/07/24 09:14 Famotidine 20 Mg Tablet PO 20 mg Q12HR KIMO Administration Hydrochlorothiazide 12.5 mg 07/07/24 09:00 07/07/24 09:14 Hydrochlorothiazide 12.5 Mg Capsule PO 12.5 mg QAM KIMO Administration Cefazolin Sodium 2 gm in 50 mls @ 100 mls/hr 07/06/24 20:00 07/07/24 05:09 Ancef 2 Gm/D5w 50 Ml IVPB 07/07/24 12:29 Infused Q8H KIMO Infusion Sodium Chloride 1,000 mls @ 125 mls/hr 07/07/24 04:45 07/07/24 05:05 Normal Saline Iv IV CONT 125 mls/hr .Q8H KIMO Administration Losartan Potassium 50 mg 07/07/24 09:00 07/07/24 09:14 Losartan Potassium 50 Mg Tablet PO 50 mg QAM KIMO Administration Morphine Sulfate 2 mg 07/06/24 16:54 Morphine Sulfate (*Crx) 2 Mg/Ml Inj IV PUSH Q2H PRN Breakthrough Pain Rated 4-6 or NPO Naloxone HCl 0.1 mg 07/06/24 16:54 Naloxone Hcl 0.4 Mg/Ml Vial IV PUSH Q2M PRN Opiate Reversal Ondansetron HCl 4 mg 07/06/24 16:54 07/06/24 17:16 Ondansetron Inj 4 Mg/2 Ml Vial IV PUSH 4 mg Q4H PRN Administration Nausea And Vomiting Oxycodone HCl 2.5 mg 07/06/24 16:54 Oxycodone Hcl (*C
--- NOTE | 2024-07-07 11:40 | PM.DS ---
DS: Admitting Diagnosis Discharge Date 07/07 Admitting Diagnosis Left knee DJD DS: Discharge Diagnosis Discharge Diagnosis (1) Osteoarthritis of left knee: Qualifiers: Osteoarthritis type: primary Qualified Code(s): M17.12 - Unilateral primary osteoarthritis, left knee Code(s): M17.12 - Unilateral primary osteoarthritis, left knee Status: Acute DS: Summary Hospital Course Hospital Course: 79-year-old female who underwent left total knee arthroplasty on 07/06. She underwent the procedure without complications. She has been afebrile and vital signs are stable. Neurovascularly she is intact. Dressing is dry and intact. Patient quite a bit of postop nausea that dissipated by the morning of postop day 1. She was able to eat breakfast. She felt much better after this. On Eliquis for DVT prophylaxis. Pain is well controlled scheduled Tylenol every 4 hours as well as oxycodone 2.5. She is on Celebrex 100 mg daily. Patient will be discharged . She was advised to keep leg elevated swelling. She is to exercise the knee every hour while awake. She will go home with a 1 week of Omnicef as well as Senokot Patient takes MiraLax daily and will continue with that. Patient was advised any questions or concerns she is to call the office Time Spent with Patient Time attestation: Total time spent providing and/or coordinating discharge services: DS: Data Data Completed and Pending Labs on day of discharge: Labs from last 24 hours 07/07/24 05:25 WBC 9.7 RBC 3.08 L Hgb 9.4 L Hct 29.2 L MCV 94.8 MCH 30.5 MCHC 32.2 RDW 13.0 Plt Count 191 MPV 11.1 H Immature Gran % (Auto) 0.3 Neut % (Auto) 87.2 H Lymph % (Auto) 4.9 L [place] % (Auto) 7.5 Eos % (Auto) 0.0 Baso % (Auto) 0.1 L Lymph # (Auto) 0.47 L [place] # (Auto) 0.7 H Eos # (Auto) 0.0 Baso # (Auto) 0.0 Abs Immat Gran (auto) 0.03 Absolute Neuts (auto) 8.4 H Absolute Nucleated RBC 0.000 Nucleated RBC % 0.0 Sodium 132 L Potassium 3.9 Chloride 99 Carbon Dioxide 26 Anion Gap 7 BUN 22 H Creatinine 1.10 H Estim Creat Clear Calc 37 Estimated GFR 48 L Glucose 125 H Calcium 7.8 L Vitamin D 25-Hydroxy 14.6 Discharge Plan Discharge Patient Disposition: Home, Self-Care Discharge Instructions: BLANCA NEIL M.D [facility] [address] [place] [address] POST-OPERATIVE DISCHARGE INSTRUCTIONS TOTAL KNEE ARTHROPLASTY 1. When resting, do not rest in the chair.When resting, lie on your back, with back flat on the couch or bed, with leg elevated above heart to minimize swelling. You may put a pillow under your head. . Significant swelling could indicate a blood clot and if this occurs call the office (or go to the ER) to have a venous ultrasound. Therefore, do not rest in a chair. 2. At least five times a day spend several minutes stretching your knee into flexion while sitting in the chair and also stretching your knee out straight The abilities to bend your knee fully and straighten your knee fully are two most important knee functions to focus on during your recovery. 3. It is ok to sit in chair to eat, use the toilet and receive a guest and to do your stretching exercises, but, sitting in a chair will cause your leg to swell. Therefore, avoid additional time sitting in the chair. and don't rest in the chair. 4. Wound Care: Nursing will give you an additional Mepilex dressing at the time of discharge. Patient to remove the dressing and apply a new Mepilex dressing at home 7 days after surgery and leave the dressing on until seen in office. It is normal to see a small amount of blood on the silver pad of the Mepilex dressing. Its designed to hold small spots of blood. However, if the blood reaches the edge of the pad up to the boarder of the clear membrane that surrounds the pad, the pad is saturated and the Mepilex dressing should be removed and a new
--- NOTE | 2024-07-07 12:22 | PCPTNOTE ---
On 07/07/24, the student, [Chanda Vincent], provided care and completed [facility] documentation on this patient. I have reviewed the student's documentation and agree with the findings.
[2024-07-07] MEDS: ONDANSETRON INJ 4 MG/2 ML VIAL IV PUSH (12:31)
== END 2024-07-07 14:15 | disposition home or self-care (01) ==
LOC: ANHSURGERY 08:41 → ANH3MED 17:01
PROVIDERS: Physician Assistant Surgical; PCP Internal Medicine; Visit Provider Orthopaedic Surgery
PROC: (CPT 27447; principal; 2024-07-06 11:30)
DX: M17.12 Unilateral primary osteoarthritis, left knee (principal); I10 Essential (primary) hypertension; Z86.010 Personal history of colon polyps; K59.01 Slow transit constipation
CPT/HCPCS: 27447; 36415; 73560; 80048; 82306; 85025; 86850; 86900; 86901; 97110; 97161; 97165; 97530; A9270; C1713; C1776; J0171; J0690; J1100; J1170; J1885; J2270; J2405; J2704; J2795; J3010; J3370; J7030; J7120

== ENCOUNTER 2024-07-10 12:49 | Outpatient (RCR) | payer MEDICARE, SELFPAY ==
--- NOTE | 2024-07-07 07:59 | WPDANESPN ---
Anes - Prog Note Post-Op Date/Time: 07/07/24 07:59 Cardiovascular status: normal Respiratory status: normal Airway patency: baseline Mental status: baseline Post-Op hydration status: normal Pain Score (VAS): 0 Patient Feedback: Patient satisfied with anesthetic care.
--- NOTE | 2024-07-10 13:39 | PTOPEVAL1 ---
Assessment and note entered by Bharath Bess Evaluation Information Assessment Status Evaluation Diagnosis left TKA ICD-10 Condition Codes (PT) Z47.1 Onset 07/06/24 Subjective Information Pt. reports that she underwent a left TKA last week . she reports she returned home the day after surgery. Her daughter has been staying with her, but the pt. feels she is able to be on her own. She reports that prior to surgery she was doing all community activities and driving. she states that she is now using a ww. She states that she is taking some Tylenol to help with sleep, but is having a little trouble sleeping. Reported Pain Level Pain Score 5: Self Report Assessment PT Clinical Summary Pt. is an 79 year old female who enters the clinic 4 days post left TKA. She presents with edema, impaired strength, impaired ROM, impaired gait and functional decline. Continued skilled PT is indicated in order to improve these areas to assist with pt. being able to return to normal IADL performance without limitation. Plan of Care Interventions Electrical Stimulation,Gait Training,Intermittent Compression,Manual Therapy,Neuro Re-education, Patient/Caregiver Educati,Therapeutic Activities, Therapeutic Exercise PT Services Indicated Yes Treatment Frequency and 2x/week x 10 visits Duration These treatments will address the objective and functional deficits as defined above. The patient will be advanced safely and appropriately in order for the patient to progress towards his/her prior level of function. Additional exercises will be introduced and as well as a comprehensive home exercise program upon discharge, if needed, ?to ensure carryover of functional gains achieved in the clinic. This treatment plan has been reviewed and agreement upon by the patient.
--- NOTE | 2024-07-10 13:40 | OPREHPOC ---
Outpatient Therapy Plan of Care This is a Multidisciplinary Plan of Care that may contain components documented by all disciplines (PT, OT, and ST.) PT Problem 1 PT Problem #1 Knowledge Deficit PT Goal 1 Goal / Goal Update Pt. will be independent with a HEP addressing ROM yarsanism and strength Target Visit 2 PT Problem 2 PT Problem #2 Impaired Range of Motion PT Goal 1 Goal / Goal Update Pt. will achieve 0-130 degrees left knee active ROM Target Visit 10 PT Problem 3 PT Problem #3 Impaired Gait PT Goal 1 Goal / Goal Update Pt. will ambulate a distance of 900' in 6 minutes without an AD with equal right and left stance time Pt. will navigate steps with reciprocal pattern PT Problem 4 PT Problem #4 Impaired Functional Mobil PT Goal 1 Goal / Goal Update Pt. will return to driving to complete all IADL's without assist. Target Visit 10
--- NOTE | 2024-08-09 07:40 | PTOPDC ---
Assessment and note entered by Bharath Bess Evaluation Information Assessment Status Discharge Diagnosis left TKA ICD-10 Condition Codes (PT) Z47.1 Onset 07/06/24 Subjective Information Pt. states that she played cards yesterday and did notice some swelling after playing cards. She states that she is pleased with her progress, but still deals with on/off swelling. She states that she has not been performing exercise regularly. She states that despite mild pain and swelling, she is doing better and happy with her progress. She states that she is ready for discharge. Reported Pain Level Pain Score 2: Self Report Assessment PT Clinical Summary Pt. has met all goals established at the initial evaluation. She is independent with her current HEP. Encourage the pt. to continue with exercise and she will be discharged from our care at this time. Plan of Care PT Services Indicated No
== END 2024-08-09 08:25 | disposition home or self-care (01) ==
LOC: CHSPT 12:49
PROVIDERS: Visit Provider Orthopaedic Surgery
DX: M17.12 Unilateral primary osteoarthritis, left knee (principal); Z96.652 Presence of left artificial knee joint
CPT/HCPCS: 97110; 97150; 97161; 97530

== ENCOUNTER 2024-07-18 07:28 | Emergency (ER) | payer MEDICARE, SELFPAY ==
--- NOTE | ~2024-07-18 | US_ITS ---
EXAMINATION: US venous doppler [facility] DATE: 07/18/2024 07:50 INDICATION: Postoperative swelling of the left lower limb. TECHNIQUE: Grayscale ultrasound images without and with compression and Doppler ultrasound images of the left lower extremity veins were obtained. COMPARISON: None. FINDINGS: The visualized portions of left common femoral vein, profunda (deep) femoral vein, femoral vein, popl iteal vein, peroneal veins, posterior tibial veins, gastrocnemius vein and greater saphenous vein out flow are patent. IMPRESSION: 1. No deep venous thrombosis in the left lower limb. Reviewed, dictated and finalized at location A.
[2024-07-18 07:28] VITALS: BP 148/70; PULSE 77; RESP 18; TEMP 36.2; O2SAT 96
--- NOTE | 2024-07-18 07:33 | ED.LOWEXIN ---
HPI - Extremity Injury (Lower) General Chief Complaint: Extremity Injury, Lower Stated Complaint: left knee swollen Time Seen by Provider: 07/18/24 07:29 Source: patient Mode of arrival: ambulatory Limitations: no limitations History of Present Illness HPI Narrative: Patient is an 79-year-old female with a left lower extremity pain and swelling and ecchymosis over the last few days. She had a total knee replacement on the left 2 weeks ago. No short of breath. She is on a blood thinner of Eliquis. Onset (ago): day(s) (3) Injury: Left: knee Type of Injury: other ( Left total knee replacement 2 weeks ago) Place: home and other ( patient was at physical therapy today and made a few complaints about this left lower extremity so they brought her to the ER for a DVT rule out; patient on Eliquis) Severity: mild Severity scale (1-10): 2 Relieving factors: rest and other ( elevation) Exacerbating factors: weight bearing, movement and palpation Context: other ( total knee replacement on the left) Associated symptoms: swelling and other ( ecchymosis and pain) Other symptoms: none Treatments prior to arrival: other ( Eliquis) Related Data Home Medications Medication Instructions Recorded Confirmed losartan 50 mg-hydrochlorothiazide 1 tablet PO DAILY 12/23/23 07/18/24 12.5 mg tablet polyethylene glycol 3350 17 8.5 g PO DAILY 03/28/24 07/18/24 gram/dose oral powder (Miralax) Allergies Allergy/AdvReac Type Severity Reaction Status Date / Time No Known Allergies Allergy Verified 07/18/24 07:38 Review of Systems Review of Systems: All systems reviewed & are unremarkable except as noted in HPI and below Constitutional: Constitutional: Reports no additional constitutional complaints Eyes: Eyes: Reports no additional eye complaints ENT: Reports system reviewed and no additional complaints, except as documented Cardiovascular: Cardiovascular: Reports no additional cardiovascular complaints Respiratory: Respiratory: Reports no additional respiratory complaints Gastrointestinal: Gastrointestinal: Reports no additional gastrointestinal complaints Genitourinary: Genitourinary: Reports no additional female genitourinary complaints Musculoskeletal: Musculoskeletal: Reports no additional musculoskeletal complaints Integumentary/Breasts: Skin/Breast: Reports system reviewed and no additional complaints, except as docu Neurologic: Reports system reviewed and no additional complaints, except as documented Psychiatric: Psychiatric: Reports no additional psychiatric complaints Endocrine: Endocrine: Reports no additional endocrine complaints Hematologic/Lymphatic: Hematologic/Lymphatic: Reports no additional hematologic/lymphatic complaints Allergic/Immunologic: Allergic/Immunologic: Reports no additional allergic/immunologic complaints PMFSH Past Medical History Medical History Diverticulosis HTN (hypertension) Hx of adenomatous colonic polyps Slow transit constipation Surgical History Surgical History History of blepharoplasty Family History Family History Mother Cerebrovascular accident Sibling Cerebrovascular accident Father Heart disease Heart attack Acute myocardial infarction Social History Social History Social History: Lives alone, no pets. Has 2 steps up to get into front door. Smoking status: Never smoker Second hand tobacco smoke exposure: Yes Additional smoking assessment comments: DENIES ANY FORM OF TOBACCO USE Alcohol intake: never Substance use: never Substance use type: does not use Do You Feel Safe in your Home?: Yes Lack of Transportation: No Lack of Food: Never True Current Housing: I Have Housing Concerned About Future Housing: No Difficulty Paying
== END 2024-07-18 08:25 | disposition home or self-care (01) ==
PROVIDERS: Emergency Provider Emergency Medicine; PCP Internal Medicine
DX: M25.562 Pain in left knee (principal); I10 Essential (primary) hypertension; Z96.652 Presence of left artificial knee joint; Z79.01 Long term (current) use of anticoagulants; Z79.899 Other long term (current) drug therapy
CPT/HCPCS: 93971; 99284

== ENCOUNTER 2024-07-27 04:16 | Emergency (ER) | payer MEDICARE, SELFPAY ==
--- NOTE | ~2024-07-27 | XR_ITS ---
Supine and upright views of the abdomen Clinical history: Constipation COMPARISON: 02/14/2024 Findings: Bowel gas pattern is nonspecific. No evidence for obstruction or free air. No abnormal mass lesion or calcification is seen. Osseous structures are intact. Impression: Moderate stool at the rectum. Reviewed, dictated and finalized at [facility]. Impression: Moderate stool at the rectum.
[2024-07-27 04:18] VITALS: BP 144/63; PULSE 82; RESP 18; TEMP 36.6; O2SAT 98
--- NOTE | 2024-07-27 04:24 | ED.ABDPAIN ---
HPI - Abdominal Pain General Chief Complaint: Abdominal Pain Stated Complaint: CONSTIPATION Time Seen by Provider: 07/27/24 04:23 Source: patient Mode of arrival: ambulatory Limitations: no limitations History of Present Illness HPI narrative: 79-year-old female with a history of hypertension arthritis, diverticulosis, constipation on PEG/Linzess, colonic polyps presents to the ED with -- constipation with no bowel movement for the past 6 days. The patient wants to defecate but is not able to push the stool out. No abdominal pain. No nausea / vomiting. No abdominal distension. No fever or chills. Pertinent past history: constipation Onset (ago): day(s) ( Five days) Exacerbating factors: nothing Relieving factors: nothing Associated symptoms: denies other symptoms Related Data Home Medications Medication Instructions Recorded Confirmed losartan 50 mg-hydrochlorothiazide 1 tablet PO DAILY 12/23/23 07/27/24 12.5 mg tablet Allergies Allergy/AdvReac Type Severity Reaction Status Date / Time No Known Allergies Allergy Verified 07/19/24 14:21 Review of Systems Review of Systems: All systems reviewed & are unremarkable except as noted in HPI and below Constitutional: Constitutional: Reports as per HPI and Reports no additional constitutional complaints Eyes: Eyes: Reports as per HPI and Reports no additional eye complaints ENT: Reports system reviewed and no additional complaints, except as documented and Reports as per HPI Cardiovascular: Cardiovascular: Reports as per HPI and Reports no additional cardiovascular complaints Respiratory: Respiratory: Reports as per HPI and Reports no additional respiratory complaints Gastrointestinal: Gastrointestinal: Reports as per HPI, Reports no additional gastrointestinal complaints and Reports constipation Genitourinary: Genitourinary: Reports no additional female genitourinary complaints and Reports as per HPI Musculoskeletal: Musculoskeletal: Reports no additional musculoskeletal complaints and Reports as per HPI Comments: status post left knee replacement without any left knee complains Integumentary/Breasts: Skin/Breast: Reports system reviewed and no additional complaints, except as docu and Reports as per HPI Comments: bruising of the left leg Neurologic: Reports system reviewed and no additional complaints, except as documented and Reports as per HPI Psychiatric: Psychiatric: Reports no additional psychiatric complaints and Reports as per HPI Endocrine: Endocrine: Reports no additional endocrine complaints and Reports as per HPI Hematologic/Lymphatic: Hematologic/Lymphatic: Reports no additional hematologic/lymphatic complaints and Reports as per HPI Allergic/Immunologic: Allergic/Immunologic: Reports no additional allergic/immunologic complaints and Reports as per HPI PMFSH Past Medical History Medical History Diverticulosis HTN (hypertension) Hx of adenomatous colonic polyps Slow transit constipation Surgical History Surgical History History of blepharoplasty History of knee surgery Family History Family History Mother Cerebrovascular accident Sibling Cerebrovascular accident Father Heart disease Heart attack Acute myocardial infarction Social History Social History Social History: Lives alone, no pets. Has 2 steps up to get into front door. Smoking status: Never smoker Second hand tobacco smoke exposure: Yes Additional smoking assessment comments: DENIES ANY FORM OF TOBACCO USE Alcohol intake: never Substance use: never Substance use type: does not use Do You Feel Safe in your Home?: Yes Lack of Transportation: No Lack of Food: Never True Current Housing: I Have Housing Concer
--- NOTE | 2024-07-27 06:32 | PC.NURSE ---
PT HAD MINIMAL RESULTS FROM SOAP SUDS ENEMA OF SOFT AVA COLORED STOOL. R[facility]RICK CARE PERFORMED, ASSISTED PT IN APPLYING ADULT INCONTINENCE DIAPER, RETURNED TO BED ON L SIDE. DAUGHTER BROUGHT CLEAN SHIRT IN FOR PT.
--- NOTE | 2024-07-27 07:04 | PC.NURSE ---
REPORT TO DAVID MOULTON.
[2024-07-27] MEDS: polyethylene glycoL 3350 17 GM POWD.PACK PO (07:09)
[2024-07-27 07:13] VITALS: BP 134/52; PULSE 75; RESP 14; TEMP 36.7; O2SAT 100
== END 2024-07-27 07:15 | disposition home or self-care (01) ==
PROVIDERS: Emergency Provider Internal Medicine Critical Care Medicine; PCP Internal Medicine
DX: K59.00 Constipation, unspecified (principal); I10 Essential (primary) hypertension; Z79.899 Other long term (current) drug therapy
CPT/HCPCS: 74018; 99283

== ENCOUNTER 2024-08-09 12:15 | Outpatient (CLI) | payer MEDICARE, SELFPAY ==
--- NOTE | ~2024-08-09 | DEXA_ITS ---
Bone Density Report Name: TIMMY RAYA Age: 79 Sex: Female Ethnicity: White Date of : 1945 Indication: postmenopausal; screening for osteoporosis; height loss; Referring Provider: BLANCA NEIL Study: Bone densitometry was performed. Exam Date: August 09, 2024 Accession number: [id number] Bone Density: Region BMD T-score Z-score Classification AP Spine(L1-L4) 0.964 -0.8 2.0 Normal Femoral Neck (Left) 0.650 -1.8 0.6 Osteopenia Total Hip (Left) 0.786 -1.3 0.9 Osteopenia Femoral Neck (Right) 0.679 -1.5 0.8 Osteopenia Total Hip (Right) 0.797 -1.2 1.0 Osteopenia Femoral Neck Mean 0.665 -1.7 0.7 Osteopenia Total Hip Mean 0.791 -1.2 0.9 Osteopenia World Health Organization criteria for BMD impression classify patients as: Normal (T-score at or above -1.0), Osteopenia (T-score between -1.0 and -2.5), or Osteoporosis (T-score at or below -2.5). 10-year Fracture Risk(1): Major Osteoporotic Fracture 14% Hip Fracture 3.8% Reported Risk Factors: [place] (), Neck BMD=0.650, BMI=29.5 (1) FRAX(R) Version 3.08. Fracture probability calculated for an untreated patient. Fracture probability may be lower if the patient has received treatment. Clinical Information Provided by Patient: Has used the following medications: Vitamin D, Calcium Patient maximum height was 66.1 Menopause Age: 48 Does not regularly consume dairy products Onset of menses at age 10 Number of children 2 Impression: The patient has low bone mass, based on the Left Femoral Neck T-score. Discussion: BONE DENSITY IS LOW AT ONE OR MORE SKELETAL SITES. This patient's lowest T-score is low at one or more skeletal sites. It meets the World Health Organization's (WHO) criteria for ?low bone mass? (T-score between -1.0 and -2.5). The patient's 10-year risk of fracture as calculated by FRAX is less than the threshold where pharmacological therapy is recommended by the National Osteoporosis Foundation (NOF). However, all treatment decisions require clinical judgment and consideration of individual patient factors, including patient preferences, comorbidities, previous drug use, risk factors not captured in the FRAX model (e.g., frailty, falls, vitamin D deficiency, increased bone turnover, interval significant decline in bone density) and possible under or overestimation of fracture risk by FRAX. The patient should follow a healthful lifestyle (good nutrition with adequate calcium and vitamin D, and appropriate weight-bearing exercise). Follow-Up: Consider repeating this study in 2 to 3 years to reassess this patient's status, or sooner if there is some new clinical indication. Reported by: ESTEPHANIA on 08/09/2024 12:43:00 PM. Reviewed
== END 2024-08-09 12:16 | disposition home or self-care (01) ==
PROVIDERS: PCP Internal Medicine; Visit Provider Orthopaedic Surgery
DX: Z78.0 Asymptomatic menopausal state (principal); M85.89 Other specified disorders of bone density and structure, multiple sites
CPT/HCPCS: 77080

== ENCOUNTER 2025-07-03 07:05 | Outpatient (CLI) | payer MEDICARE, SELFPAY ==
--- NOTE | 2025-07-03 | CONSULT_PTH ---
PATIENT: Terrence Alexander LOC: [facility] [place][id number] AGE/SX: 80/F ROOM: RE07/03/[address]: Jarett Shea MD : 1945 BED: DIS: 07/03/2025 SPEC #: [id number] RECD: 07/03/25 07:30 STATUS: CADENCE RENatalia #: [id number] JEFFERSON: 07/03/25 00:[address]: Jarett Shea DEPT: [facility] Consult RECD BY: Sulema Perez MLT, ([facility]) Tissues: A - Peripheral Smear Procedures: Hematology Consult
[2025-07-03 07:30] LABS: Hematocrit 34.5 % (35.0-42.0); Hemoglobin 11.3 g/dL (11.7-13.8); Immature Reticulocyte Fraction 7.3 % (2.0-16.52); Mean Corpuscular HGB Conc 32.8 g/dL (32-36); Mean Corpuscular Hemoglobin 30.2 pg (27.0-31.0); Mean Corpuscular Volume 92.2 fL (78.0-102.0); Platelet Count Result 198 K/mm3 (150-420); Red Blood Count 3.74 M/mm3 (4.20-5.40); Reticulocyte Hemoglobin Conten 35.1 pg (28.0-35.0); Reticulocytes Absolute 0.05 M/mm3 (0.02-0.10); White Blood Count 3.8 K/mm3 (4.8-10.8)
[2025-07-03 07:39] LABS: Add Urine Microscopic? YES; Appearance Urine Clear (Clear); Glucose Urine UA Negative (Negative); Leukocyte Esterase Ur 2+ (Negative); Nitrate Urine Negative (Negative); Specific Grav Ur 1.010 (1.010-1.020)
[2025-07-03 07:48] LABS: Band Neutrophils Percent 0 % (0-6); Eosinophils Absolute Manual 0.11 K/mm3 (0.02-0.50); Eosinophils Percent Manual 3 % (1-6); Lymphocytes Absolute Manual 1.55 K/mm3 (1.1-4.5); Lymphocytes Percent Manual 41 % (18-44); Monocytes Absolute Manual 0.53 K/mm3 (0.1-0.90); Monocytes Percent Manual 14 % (3-9); Neutrophils Absolute Manual 1.59 K/mm3 (1.3-6.7); Neutrophils Percent Manual 42 % (46-73); Total Cells Counted 100
[2025-07-03 07:57] LABS: Alanine Aminotransferase 14 U/L (6-35); Albumin Level 4.0 g/dL (3.5-5.1); Alkaline Phosphatase 52 U/L (38-126); Anion Gap 8 mmol/L (4-12); Aspartate Amino Transferase 29 U/L (14-36); Bilirubin,Total 0.8 mg/dL (0.2-1.3); Blood Urea Nitrogen 19 mg/dL (7-17); Calcium 9.7 mg/dL (8.4-10.2); Carbon Dioxide 30 mmol/L (22-30); Chloride 99 mmol/L (98-107); Estimated Glomerular Filt Rate 49; Glucose 99 mg/dL (65-110); Iron 71 ug/dL (37-170); Osmolality Calculated 286 mOsm/kg (285-295); Potassium 4.3 mmol/L (3.4-5.0); Sodium 137 mmol/L (137-145); Total Protein 6.3 g/dL (6.3-8.2)
[2025-07-03 08:07] LABS: Percent Iron Saturation 30 % (20-50)
[2025-07-03 08:33] LABS: Ferritin 150.00 ng/mL (11.1-264)
== END 2025-07-03 07:06 | disposition home or self-care (01) ==
LOC: CHSLAB 07:07
PROVIDERS: PCP Internal Medicine; Visit Provider Internal Medicine
DX: I10 Essential (primary) hypertension (principal); D64.9 Anemia, unspecified; D72.819 Decreased white blood cell count, unspecified
CPT/HCPCS: 36415; 80053; 81001; 82728; 83540; 83550; 85025; 85046

== ENCOUNTER 2025-10-08 07:30 | Outpatient (CLI) | payer MEDICARE, SELFPAY ==
--- OUTSIDE RECORDS SUMMARY | 2025-02-22 03:50 | XMS_ITS ---
Author Organization [facility] Address [address] [place], [place] [id number] Care Team Providers Care Sports Book Writer Name Role Phone ANGELA POWER Unavailable [phone] Jarett Shea Unavailable Unavailable Allergies No Known Allergies REASON FOR VISIT *Callus Care Medications Medication SIG (Take, Route, Frequency, Duration) Notes Start Date End Date Status Cefdinir 300 MG Capsule TAKE 1 CAPSULE B Y MOUTH EVERY 12 HOURS Oral; Duration: 7 Days Active Celecoxib 100 MG Capsule TAKE 1 CAPSULE BY MOUTH DAILY AT 8AM Oral; Duration: 60 Days Active Eliquis 2.5 MG Tablet TAKE 1 TABLET BY M OUTH EVERY 12 HOURS Oral; Duration: 14 Days Active oxyCODONE HCl 5 MG Tablet TAKE 1/2 TABLE T BY MOUTH EVERY 4 HOURS NEEDED FOR PAIN Oral; Duration: 7 Days Active Amoxicillin 500 MG Capsule Oral; Duration: 1 Days Active Vitamin D (Ergocalciferol) 1.25 MG (06057 UT) Capsule TAKE 1 CAPSULE BY MOUTH ONCE WEEKLY Oral; Duration: 56 Days Active Losartan Potassium-HCTZ 50-12.5 MG Tablet Oral; Duration: 90 Days Active Lactulose 10 GM/15ML Solution TAKE 30ML BY MOUTH TWICE A DAY Oral; Duration: 30 Days Active Social History Social History Additional Details Category Social Info Options Details Migrated Social History Migrated Social History History of tobacco use : , Smoking Status : Never used tobacco Vital Signs Height 65.00 in 02/22/2025 Weight 200 lbs 02/22/2025 BMI 33.28 kg/m2 02/22/2025 Height-cm 165.10 cm 02/22/2025 Weight-kg 90.72 kg 02/22/2025 Encounters Encounter Location Date Provider Diagnosis [facility] [place] [address] [place], [place] [id number] 02/22/2025 ANGELA POWER Metatarsalgia of right foot M77.41 ; Metatarsalgia of left foot M77.42 ; Primary focal hyperhidrosis, 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 ; Pain in right foot M79.671 and Left foot pain M79.672 Assessments Encounter Date Diagnosis (ICD Code) Assessment Notes Treatment Notes Treatment Clinical Notes Section Notes 02/22/2025 Metatarsalgia of right foot (ICD-10 - M77.41) 02/22/2025 Metatarsalgia of left foot (ICD-10 - M77.42) 02/22/2025 Primary focal hyperhidrosis, soles (ICD-10 - L74.513) 02/22/2025 Pain in right foot (ICD-10 - M79.671) 02/22/2025 Left foot pain (ICD-10 - M79.672) 02/22/2025 Other Recommended gel insoles All corns or calluses, as described in the note above, were cut and pared utilizing a #15 blade Plan Of Treatment Treatment Notes Assessment Notes Other Recommended gel insoles All corns or calluses, as described in the note above, were cut and pared utilizing a #15 blade History and Physical Notes * HPI (History of Present Illness) Category Sub-Category Detail Notes Category Not es HPI New Complaint Established lisa ent presents with a new complaint. Patient complains of an issue to bilateral feet. Patient states she has calluses on bilateral feet that are bothering her. She normally gets a pedicure, but doesn't get another one for a week. Patient states they have been bothering her for a while. Patient denies any injury. . MA: sea Examination Category Sub-Category Detail Notes Category Not es Physical Examination Gen: The patient is awake, alert, well developed, well groomed and well nourished. They are in no apparent distress. Vasc: Dorsalis pedis and p osterior tibial pulses 2+ bilaterally. No edema noted. Capillary fill time < 3 seconds to all digits. Neuro: Grossly intact to li ght touch bilateral. Musc: Foot structure is no rmal. No abnormalities noted. Muscle strength is 5/5 to all joints bilaterally. There is no pain on palpation. Dorsally contracted digits noted: 2-5 paige Derm: Skin is warm and dry , with no rashes, good skin turgor and normal hair distribution. Hyperkeratotic lesions noted: sub 4 right and 5 left Progress Notes * BRANDIE RAYAOB:[birth year] (80 yo F)Acc No.[id number]:02/22/2025 Patient: TIMMY GARCIA Provider: Mal Power DPM :1945 A ge:80 Y S ex:Female Date:02/22/2025 Address:[address] [facility] Subjective: * Chief Complaints: * * Callus Care * HPI: H PI: New Complaint E stablished patient presents with a new complaint. Patient complains of an issue to bilateral feet. Patient states she has calluses on bilateral feet that are bothering her. She normally gets a pedicure, but doesn't get another one for a week. Patient states they have been bothering her for a while. Patient denies any injury. . MA: sea. * ROS: G eneral / Constitutional: Patient denies c hills, fever. E ndocrine: Patient denies e xcessive thirst, frequent urination. ? C ardiovascular: Patient denies s hortness of breath, chest pain. S kin: Patient denies m ole changes. * Social History: M igrated Social History: M igrated Social History: History of tobacco use : , Smoking Status : Never used tobacco. S ocial History Verified. * Medications: T akingLactulose 10 GM/15ML Solution TAKE 30ML BY MOUTH TWICE A DAY Oral Losartan Potassium-HCTZ 50-12.5 MG Tablet Oral Amoxicillin 500 MG Capsule Oral oxyCODONE HCl 5 MG Tablet TAKE 1/2 TABLET BY MOUTH EVERY 4 HOURS NEEDED FOR PAIN Oral Eliquis 2.5 MG Tablet TAKE 1 TABLET BY MOUTH EVERY 12 HOURS Oral Celecoxib 100 MG Capsule TAKE 1 CAPSULE BY MOUTH DAILY AT 8AM Oral Cefdinir 300 MG Capsule TAKE 1 CAPSULE BY MOUTH EVERY 12 HOURS Oral Vitamin D (Ergocalciferol) 1.25 MG (71204 UT) Capsule TAKE 1 CAPSULE BY MOUTH ONCE WEEKLY Oral Medication List reviewed and reconciled with the patientTaking Lactulose 10 GM/15ML Solution TAKE 30ML BY MOUTH TWICE A DAY Oral Taking Losartan Potassium-HCTZ 50-12.5 MG Tablet Oral Taking Amoxicillin 500 MG Capsule Oral Taking oxyCODONE HCl 5 MG Tablet TAKE 1/2 TABLET BY MOUTH EVERY 4 HOURS NEEDED FOR PAIN Oral Taking Eliquis 2.5 MG Tablet TAKE 1 TABLET BY MOUTH EVERY 12 HOURS Oral Taking Celecoxib 100 MG Capsule TAKE 1 CAPSULE BY MOUTH DAILY AT 8AM Oral Taking Cefdinir 300 MG Capsule TAKE 1 CAPSULE BY MOUTH EVERY 12 HOURS Oral Taking Vitamin D (Ergocalciferol) 1.25 MG (10076 UT) Capsule TAKE 1 CAPSULE BY MOUTH ONCE WEEKLY Oral Medication List reviewed and reconciled with the patient * Allergies: N .K.D.A.yesAllergies Verified. Objective: * Vitals: W t: 200 lbs, Wt-k.72 kg, Ht: 65.00 in, Ht-cm: 165.10 cm, BMI: 33.28 Index, Body Surface Area: 2.04. * Examination: P hysical Examination: Gen: T he patient is awake, alert, well developed, well groomed and well nourished. They are in no apparent distress. . Musc: F oot structure is normal. No abnormalities noted. Muscle strength is 5/5 to all joints bilaterally. There is no pain on palpation. Dorsally contracted digits noted: 2- 5 paige. Derm: S kin is warm and dry, with no rashes, good skin turgor and normal hair distribution. Hyperkeratotic lesions noted: sub 4 right and 5 left. Neuro: G rossly intact to light touch bilateral.. Vasc: D orsalis pedis and posterior tibial pulses 2+ bilaterally. No edema noted. Capillary fill time < 3 seconds to all digits. . Assessment: * Assessment: 1. M etatarsalgia of right foot - M77.41 (Primary) 2 . M etatarsalgia of left foot - M77.42 3 . P rimary focal hyperhidrosis, soles - L74.513 ?4. P ain in right foot - M79.671 5 . L eft foot pain - M79.672 ? Plan: * Treatment: * Preventive Medicine: Screenings: F all risk screening Fall Risk Assessment: N o falls in the past year Billing Information: * Visit Code: 20446 Office Visit, Est Pt., Level 3. * Procedure Codes: * Electronic signature of ANGELA POWER DPM on 10/08/2025 at 07:34 AM SYRUPER Sign off status: Pending * Provider: Mal Power DPM Date: 0 02/22/2025 Generated for Laurie francois/Bossman/Beba on: 12/08/2024 07:34 AM SYRUPER
--- OUTSIDE RECORDS SUMMARY | 2025-10-08 07:34 | XMS_ITS | Patient Health Record ---
Author Organization [facility] Address [address] [place], [place] [id number] Care Team Providers Care Distribution Tech Name Role Phone ANGELA ALLEN Unavailable [phone] MonseJarett cole Unavailable Unavailable Allergies No Known Allergies Reason For Referral No Information Medications Medication SIG (Take, Route, Frequency, Duration) [...] 12 HOURS Oral; Duration: 14 Days Active Vitamin D (Ergocalciferol) 1.25 MG (65849 UT) Capsule TAKE 1 CAPSULE BY MOUTH ONCE WEEKLY Oral; Duration: 56 Days Active oxyCODONE HCl 5 MG Tablet TAKE 1/2 TABLE T BY MOUTH EVERY 4 HOURS NEEDED FOR PAIN Oral; Duration: 7 Days Active Amoxicillin 500 MG Capsule Oral; Duration: 1 Days Active Losartan Potassium-HCTZ 50-12.5 MG Tablet Oral; Duration: 90 Days Active Lactulose 10 GM/15ML Solution TAKE 30ML BY MOUTH TWICE A DAY Oral; Duration: 30 Days Active Immunizations Vaccine Route Administration Date Status Comme nts Influenza, high dose seasonal Unknown 08/14/2023 Admini stered Pneumococcal conjugate PCV 13 Unknown 12/15/2023 Admini stered Social History Social History Additional Details Category Social Info Options Details Migrated Social History Migrated Social History History of tobacco use : , Smoking Status : Never used tobacco Vital Signs Height-cm 165.10 cm 02/22/2025 Weight-kg 90.72 kg 02/22/2025 Height 65.00 in 02/22/2025 Weight 200 lbs 02/22/2025 BMI 33.28 kg/m2 02/22/2025 Encounters Encounter Location Date Provider Diagnosis [facility] [address] [place], [place] [id number] 02/22/2025 ANGELA ALLEN Metatarsalgia of right foot M77.41 ; Metatarsalgia of left foot M77.42 ; Primary focal hyperhidrosis, 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 [address] [place], [place] [id number] 02/20/2025 ANGELA ALLEN Assessments Encounter Date Diagnosis (ICD Code) Assessment [...] utilizing a #15 blade Plan Of Treatment No Information Insurance Providers Payer Name Payer Address Payer Phone Subscriber Number Group Number Insured Name Patient Relationship to Insured Coverage Start Date Coverage End Date Medicare Part B [place] [address] [place] [address] [id number] TIMMY PITTMAN Self - patient is the insured [facility] ([facility]) ATTN CLAIMS [address] [place] [address] [id number] TIMMY PITTMAN Self - patient is the insured
[2025-10-08 07:47] LABS: Hematocrit 35.8 % (35.0-42.0); Hemoglobin 11.7 g/dL (11.7-13.8); Immature Reticulocyte Fraction 6.0 % (2.0-16.52); Mean Corpuscular HGB Conc 32.7 g/dL (32-36); Mean Corpuscular Hemoglobin 30.3 pg (27.0-31.0); Mean Corpuscular Volume 92.7 fL (78.0-102.0); Platelet Count Result 201 K/mm3 (150-420); Red Blood Count 3.86 M/mm3 (4.20-5.40); Reticulocyte Hemoglobin Conten 34.7 pg (28.0-35.0); Reticulocytes Absolute 0.04 M/mm3 (0.02-0.10); White Blood Count 4.1 K/mm3 (4.8-10.8)
[2025-10-08 14:58] LABS: Vitamin B12 835.0 pg/mL (239-931)
== END 2025-10-08 07:31 | disposition home or self-care (01) ==
LOC: CHSLAB 07:32
PROVIDERS: PCP Internal Medicine; Visit Provider Internal Medicine
DX: E53.8 Deficiency of other specified B group vitamins (principal)
CPT/HCPCS: 36415; 82607; 85027; 85046